=== PATIENT | male | born 1930 | race Caucasian/White ===

== ENCOUNTER 2016-10-24 05:56 | Day surgery (SDC) | payer MEDICARE ==
[~2016-10-24] VITALS: Ht 172.7 cm; Wt 78.6 kg
[2016-10-24] VITALS (12 sets, daily range): BP systolic 122–153; BP diastolic 75–107; PULSE 69–71; TEMP 97.4
[~2016-10-24 05:56] MED LIST: ASPI81CT10; ASPIRIN 81M81 MG/TA2 PO; BETAPACE 120MG120 MG PO; BETAPACE 80MG80 MG PO; CALCIUM200 MG PO; CEPHALEXIN500 M1 PO; DOXYCYCLINE 10100 MG PO; FISH OIL500 MG PO; GARLIC SUPPLEM300 MG PO; MUCUS RELIEF400 M1 PO; MULTAQ400 MG PO; NEW ENERGY1 CAP PO; NORCO 325 MG-51 TAB PO; NORCO 325 MG-7.1 TAB PO; NORVASC 5MG5 MG/TAB PO; OMEGA 31000 MG; PREVACID 30MG30 M1 PO; TOPROL XL25 MG PO; TYLENOL 500MG500 MG PO; ULTRAM 50MG TAB50 MG PO; VITAMIN D 400400 IU PO; XARELTO20 MG PO; ZOCOR; ZOCOR 20MG20 MG PO
[2016-10-24 06:50] LABS: HEMATOCRIT 40.9 % (42.0-52.0); HEMOGLOBIN 14.6 g/dl (13.5-18.0); MEAN CELL VOLUME 96 fl (80.0-100.0); MEAN CORPUSCULAR HEMOGLOBIN 34 pg (27.0-31.0); MEAN CORPUSCULAR HGB CONC 36 g/dl (33.0-37.0); MEAN PLATELET VOLUME 9.8 fl (7.4-10.4); PLATELET COUNT 145 K/mm3 (130-400); RED BLOOD COUNT 4.26 M/mm3 (4.20-5.60); REDCELL DISTRIBUTION WIDTH-CV 12.7 % (11.5-14.5); WHITE BLOOD COUNT 7.5 K/mm3 (4.8-10.8)
[2016-10-24 07:00] LABS: CALCIUM 9.1 mg/dL (8.4-10.2); CREATININE, serum 0.72 mg/dL (0.66-1.25); POTASSIUM 4.2 mmol/L (3.4-5.0)
[2016-10-24 07:20] LABS: INR 1.1 (0.8-3.0); PROTHROMBIN TIME 12.4 SECONDS (9.7-12.8)
[2016-10-24] MEDS ORDERED: ASPIRIN 32325 MG/TAB PO (07:29)
[2016-10-24] MEDS ORDERED: BETAPACE160 MG PO ×2 (09:54)
[2016-10-24] MEDS ORDERED: IMDUR 30MG30 MG/TAB PO (09:56)
[2016-12-03] MEDS ORDERED: LASIX 20MG TABL20 MG PO (14:38)
[2016-12-03] MEDS ORDERED: ALDACTONE50 MG PO (14:39)
[2016-12-03] MEDS ORDERED: PRINIVIL10 MG PO (14:39)
[2016-12-03] MEDS ORDERED: TOPROL XL 50MG50 MG PO (14:39)
[2016-12-03] MEDS ORDERED: TOPROL XL 25MG25 MG PO (14:45)
[2016-12-03] MEDS ORDERED: LIPITOR 10MG10 MG PO (14:46)
[2016-12-03] MEDS ORDERED: ALDACTONE 25MG25 M1 PO (14:46)
[2016-12-03] MEDS ORDERED: ZESTRIL2.5 MG PO (14:47)
[2016-12-03] MEDS ORDERED: LASIX 40MG TABL40 MG PO (14:48)
[2016-12-03] MEDS ORDERED: CORDARONE200 MG/TAB PO (14:48)
[2016-12-03] MEDS ORDERED: PREVACID 30MG30 M1 PO (14:49)
== END 2016-10-24 17:11 | disposition home or self-care (01) ==
LOC: COL.CAR 05:56
PROVIDERS: Internal Medicine Cardiovascular Disease
DX: I25.119 Atherosclerotic heart disease of native coronary artery with unspecified angina pectoris (principal); I50.1 Left ventricular failure, unspecified; I34.0 Nonrheumatic mitral (valve) insufficiency; E78.2 Mixed hyperlipidemia; I48.0 Paroxysmal atrial fibrillation; Z95.5 Presence of coronary angioplasty implant and graft; Z95.0 Presence of cardiac pacemaker
CPT/HCPCS: C1769; C1887; C1894; J1644; J2250; J3010; Q9967

== ENCOUNTER → 2016-11-07 | Outpatient (REF) ==
[~2016-11-07] MED LIST changes: +ALDACTONE 25MG25 M1 PO; +ALDACTONE50 MG PO; +ASPIRIN 32325 MG/TAB PO; +BETAPACE160 MG PO; +CORDARONE200 MG/TAB PO; +IMDUR 30MG30 MG/TAB PO; +LASIX 20MG TABL20 MG PO; +LASIX 40MG TABL40 MG PO; +LIPITOR 10MG10 MG PO; +PRINIVIL10 MG PO; +TOPROL XL 25MG25 MG PO; +TOPROL XL 50MG50 MG PO; +ZESTRIL2.5 MG PO
== END ==
LOC: ZCOL.LAB 14:05
DX: Z01.89 Encounter for other specified special examinations (principal)

== ENCOUNTER → 2016-12-03 | Outpatient (CLI) | payer MEDICARE | LOC: COL.RAD 13:51 | DX: R53.1 Weakness (principal) | CPT/HCPCS: A9585 ==

== ENCOUNTER 2017-02-07 12:08 | Outpatient (RCR) | payer MEDICARE | END 2017-03-04 | disposition home or self-care (01) | LOC: COL.CR | DX: Z48.812 Encounter for surgical aftercare following surgery on the circulatory system (principal); Z95.1 Presence of aortocoronary bypass graft; I25.10 Atherosclerotic heart disease of native coronary artery without angina pectoris ==

== ENCOUNTER → 2017-03-11 | Outpatient (RCR) | payer MEDICARE | END | disposition home or self-care (01) | LOC: WSST → MKS.ESL.OT 12-11 14:55 → WSST 12-12 12:30 | DX: I69.318 Other symptoms and signs involving cognitive functions following cerebral infarction (principal); I69.328 Other speech and language deficits following cerebral infarction | CPT/HCPCS: G8987-GO; G8988-GO; G8989-GO; G9168-GN; G9169-GN; G9171-GN; G9172-GN; G9173-GN ==

== ENCOUNTER 2017-03-20 10:15 | Outpatient (RCR) | payer MEDICARE | END 2017-03-25 10:20 | LOC: WSST 10:15 | DX: I69.318 Other symptoms and signs involving cognitive functions following cerebral infarction (principal) | CPT/HCPCS: G9169-GN; G9170-GN ==

== ENCOUNTER 2017-08-13 13:37 | Inpatient (IN) | payer MEDICARE ==
[~2017-08-13] VITALS: Ht 175.3 cm; Wt 79.5 kg
[2017-08-18 08:54] VITALS: BP 107/70; PULSE 69; TEMP 98.3
[2017-08-18 09:27] LABS: BASO # 0.1 (0.0-0.2); BASO % 0.6 % (0.0-2.0); EOS # 0.4 (0.0-0.7); EOS % 4.5 % (0-4.0); GRAN # 5.1 (1.4-6.5); GRAN % 63.3 % (42.2-75.2); HEMATOCRIT 40.3 % (42.0-52.0); HEMOGLOBIN 13.9 g/dl (13.5-18.0); LYMPH # 1.6 (1.2-3.4); LYMPH % 20.2 % (20.0-51.0); MEAN CELL VOLUME 96 fl (80.0-100.0); MEAN CORPUSCULAR HEMOGLOBIN 33 pg (27.0-31.0); MEAN CORPUSCULAR HGB CONC 35 g/dl (33.0-37.0); MEAN PLATELET VOLUME 9.6 fl (7.4-10.4); MONO # 0.9 (0.1-0.6); MONO % 10.8 % (1.7-9.3); PLATELET COUNT 171 K/mm3 (130-400); RED BLOOD COUNT 4.21 M/mm3 (4.20-5.60); REDCELL DISTRIBUTION WIDTH-CV 13.2 % (11.5-14.5)
[2017-08-18 09:33] LABS: INR 1.1 (0.8-3.0); PROTHROMBIN TIME 12.3 SECONDS (9.7-12.8)
[2017-08-18 09:37] LABS: ALBUMIN 3.8 gm/dL (3.5-5.0); BILIRUBIN,TOTAL 0.3 mg/dL (0.0-1.0); CALCIUM 9.1 mg/dL (8.4-10.2); CREATININE, serum 0.84 mg/dL (0.66-1.25); MAGNESIUM 1.8 mg/dL (1.6-2.3); TOTAL PROTEIN 6.9 gm/dL (6.4-8.2)
[2017-08-18] MEDS ORDERED: PRILOSEC10 MG PO (10:52)
[2017-08-18] MEDS ORDERED: SINGULAIR 110 MG/TAB PO (10:53)
[2017-08-18] MEDS ORDERED: MUCINEX 60600 MG/TA1 PO (10:53)
[2017-08-18] MEDS ORDERED: LASIX 20MG TABL20 MG PO (10:54)
[2017-08-18] MEDS ORDERED: CELEBREX 200MG200 MG PO (10:54)
[2017-08-18] MEDS ORDERED: THE MEDICINE S200 M2 PO (10:55)
[2017-08-18 11:34] VITALS: BP 146/76; PULSE 76; TEMP 97.6
[2017-08-18 16:02] VITALS: BP 129/79; PULSE 73; TEMP 98.1
[2017-08-18 20:31] VITALS: BP 143/91; PULSE 80; TEMP 98.6
[2017-08-18 23:56] VITALS: BP 122/71; PULSE 76; TEMP 97.7
[2017-08-19 04:16] VITALS: BP 135/78; PULSE 69; TEMP 97.9
[2017-08-19 06:56] LABS: BASO % 0.5 % (0.0-2.0); EOS # 0.4 (0.0-0.7); EOS % 4.6 % (0-4.0); GRAN # 4.4 (1.4-6.5); GRAN % 57.3 % (42.2-75.2); HEMATOCRIT 40.5 % (42.0-52.0); HEMOGLOBIN 13.8 g/dl (13.5-18.0); LYMPH # 1.9 (1.2-3.4); LYMPH % 24.9 % (20.0-51.0); MEAN CELL VOLUME 96 fl (80.0-100.0); MEAN CORPUSCULAR HEMOGLOBIN 33 pg (27.0-31.0); MEAN CORPUSCULAR HGB CONC 34 g/dl (33.0-37.0); MEAN PLATELET VOLUME 9.7 fl (7.4-10.4); MONO # 0.9 (0.1-0.6); MONO % 12.2 % (1.7-9.3); PLATELET COUNT 168 K/mm3 (130-400); RED BLOOD COUNT 4.24 M/mm3 (4.20-5.60)
[2017-08-19 06:57] LABS: INR 1.1 (0.8-3.0); PROTHROMBIN TIME 12.5 SECONDS (9.7-12.8)
[2017-08-19 07:11] LABS: CALCIUM 9.2 mg/dL (8.4-10.2); CREATININE, serum 0.78 mg/dL (0.66-1.25); MAGNESIUM 1.8 mg/dL (1.6-2.3); POTASSIUM 4.1 mmol/L (3.4-5.0)
[2017-08-19 08:10] VITALS: BP 115/78; PULSE 71; TEMP 98.6
[2017-08-19 11:50] VITALS: BP 130/80; PULSE 74; TEMP 98.3
[2017-08-19 15:59] VITALS: BP 121/74; PULSE 70; TEMP 98
[2017-08-19 20:17] VITALS: BP 138/88; PULSE 69; TEMP 97.4
[2017-08-20 00:21] VITALS: BP 134/79; PULSE 69; TEMP 97.5
[2017-08-20 04:35] VITALS: BP 120/63; PULSE 78; TEMP 97.3
[2017-08-20 06:32] LABS: BASO % 0.5 % (0.0-2.0); EOS # 0.4 (0.0-0.7); EOS % 4.8 % (0-4.0); GRAN # 4.2 (1.4-6.5); GRAN % 55.2 % (42.2-75.2); HEMATOCRIT 40.6 % (42.0-52.0); HEMOGLOBIN 14.3 g/dl (13.5-18.0); LYMPH % 26.6 % (20.0-51.0); MEAN CELL VOLUME 94 fl (80.0-100.0); MEAN CORPUSCULAR HEMOGLOBIN 33 pg (27.0-31.0); MEAN CORPUSCULAR HGB CONC 35 g/dl (33.0-37.0); MEAN PLATELET VOLUME 9.7 fl (7.4-10.4); MONO # 0.9 (0.1-0.6); MONO % 12.4 % (1.7-9.3); PLATELET COUNT 161 K/mm3 (130-400); RED BLOOD COUNT 4.34 M/mm3 (4.20-5.60); REDCELL DISTRIBUTION WIDTH-CV 12.6 % (11.5-14.5)
[2017-08-20 06:36] LABS: INR 1.1 (0.8-3.0); PROTHROMBIN TIME 12.5 SECONDS (9.7-12.8)
[2017-08-20 06:47] LABS: CALCIUM 9.1 mg/dL (8.4-10.2); CREATININE, serum 0.78 mg/dL (0.66-1.25); POTASSIUM 4.3 mmol/L (3.4-5.0)
[2017-08-20 08:09] VITALS: BP 116/73; PULSE 70; TEMP 98
[2017-08-20] MEDS ORDERED: BETAPACE 80MG80 MG PO (09:48)
== END 2017-08-20 12:00 | disposition home or self-care (01) | DRG 310 ==
LOC: MEDICAL 08-18 08:12
PROVIDERS: Internal Medicine Cardiovascular Disease
DX: I48.0 Paroxysmal atrial fibrillation (principal); E78.5 Hyperlipidemia, unspecified; I25.2 Old myocardial infarction; Z95.1 Presence of aortocoronary bypass graft; Z95.0 Presence of cardiac pacemaker

== ENCOUNTER 2017-10-07 11:12 | Emergency (ER) | payer MEDICARE ==
[~2017-10-07] VITALS: Ht 177.8 cm; Wt 79.5 kg
[~2017-10-07 11:12] MED LIST changes: +CELEBREX 200MG200 MG PO; +MUCINEX 60600 MG/TA1 PO; +PRILOSEC10 MG PO; +SINGULAIR 110 MG/TAB PO; +THE MEDICINE S200 M2 PO
[2017-10-07 11:41] VITALS: TEMP 97.8
[2017-10-07 13:21] LABS: BASO # 0.1 (0.0-0.2); BASO % 0.6 % (0.0-2.0); EOS # 0.3 (0.0-0.7); EOS % 3.5 % (0-4.0); GRAN % 60.2 % (42.2-75.2); HEMATOCRIT 42.1 % (42.0-52.0); HEMOGLOBIN 14.7 g/dl (13.5-18.0); LYMPH # 1.9 (1.2-3.4); LYMPH % 22.7 % (20.0-51.0); MEAN CELL VOLUME 95 fl (80.0-100.0); MEAN CORPUSCULAR HEMOGLOBIN 33 pg (27.0-31.0); MEAN CORPUSCULAR HGB CONC 35 g/dl (33.0-37.0); MEAN PLATELET VOLUME 9.8 fl (7.4-10.4); MONO % 12.4 % (1.7-9.3); PLATELET COUNT 168 K/mm3 (130-400); RED BLOOD COUNT 4.42 M/mm3 (4.20-5.60); REDCELL DISTRIBUTION WIDTH-CV 12.6 % (11.5-14.5)
[2017-10-07 13:23] LABS: INR 1.1 (0.8-3.0); PROTHROMBIN TIME 12.3 SECONDS (9.7-12.8)
[2017-10-07 13:29] LABS: ALANINE AMINOTRANSFERASE 29 U/L (21-72); ALBUMIN 3.8 gm/dL (3.5-5.0); ALKALINE PHOSPHATASE 63 U/L (50-136); ANION GAP 10 mmol/L (7-16); AST,SGOT 46 U/L (15-37); BILIRUBIN,TOTAL 0.5 mg/dL (0.0-1.0); BLOOD UREA NITROGEN 18 mg/dL (9-20); CALCIUM 9.1 mg/dL (8.4-10.2); CARBON DIOXIDE 27 mmol/L (22-30); CHLORIDE 101 mmol/L (98-107); CREATININE, serum 0.82 mg/dL (0.66-1.25); GLUCOSE 138 mg/dL (74-106); LIPASE 69 U/L (23-300); POTASSIUM 4.5 mmol/L (3.4-5.0); SODIUM 139 mmol/L (137-145)
[2017-10-07 13:42] LABS: TROPONIN-I < 0.012 ng/mL (0.000-0.034)
[2017-10-07 16:22] VITALS: BP 150/91; PULSE 73
== END 2017-10-07 16:24 | disposition home or self-care (01) ==
LOC: COL.ER 11:12
PROVIDERS: Emergency Medicine
DX: I20.8 Other forms of angina pectoris (principal); I10 Essential (primary) hypertension; E78.5 Hyperlipidemia, unspecified; Z98.890 Other specified postprocedural states; Z95.0 Presence of cardiac pacemaker

== ENCOUNTER → 2017-12-25 | Outpatient (CLI) | payer MEDICARE | LOC: COL.VAS 12:30 | DX: I70.213 Atherosclerosis of native arteries of extremities with intermittent claudication, bilateral legs (principal) ==

== ENCOUNTER 2019-01-02 07:24 | Emergency (ER) | payer MEDICARE ==
[~2019-01-02] VITALS: Ht 177.8 cm; Wt 77.7 kg
[2019-01-02 07:58] LABS: BASO # 0.1 (0.0-0.2); BASO % 0.6 % (0.0-2.0); EOS # 0.3 (0.0-0.7); EOS % 3.3 % (0-4.0); GRAN # 5.1 (1.4-6.5); GRAN % 62.2 % (42.2-75.2); HEMATOCRIT 43.1 % (42.0-52.0); HEMOGLOBIN 14.9 g/dl (13.5-18.0); LYMPH # 1.8 (1.2-3.4); LYMPH % 22.2 % (20.0-51.0); MEAN CELL VOLUME 99 fl (80.0-100.0); MEAN CORPUSCULAR HEMOGLOBIN 34 pg (27.0-31.0); MEAN CORPUSCULAR HGB CONC 35 g/dl (33.0-37.0); MEAN PLATELET VOLUME 9.2 fl (7.4-10.4); MONO # 0.9 (0.1-0.6); MONO % 10.8 % (1.7-9.3); PLATELET COUNT 159 K/mm3 (130-400); RED BLOOD COUNT 4.36 M/mm3 (4.20-5.60)
[2019-01-02 08:10] LABS: ALANINE AMINOTRANSFERASE 22 U/L (21-72); ALBUMIN 3.9 gm/dL (3.5-5.0); ALKALINE PHOSPHATASE 61 U/L (50-136); ANION GAP 9 mmol/L (7-16); AST,SGOT 31 U/L (15-37); BILIRUBIN,TOTAL 0.6 mg/dL (0.0-1.0); BLOOD UREA NITROGEN 27 mg/dL (9-20); C-REACTIVE PROTEIN 1.1 mg/dL (0.0-0.9); CARBON DIOXIDE 25 mmol/L (22-30); CHLORIDE 106 mmol/L (98-107); CREATININE, serum 0.81 (0.66-1.25); GLUCOSE 153 mg/dL (74-106); POTASSIUM 4.7 mmol/L (3.4-5.0); SODIUM 141 mmol/L (137-145); TOTAL PROTEIN 7.2 gm/dL (6.4-8.2)
[2019-01-02 08:19] LABS: ERYTHROCYTE SEDIMENTATION RATE 7 mm/hr (0-30); TROPONIN-I < 0.012 ng/mL (0.000-0.035)
[2019-01-02 11:02] LABS: PROTHROMBIN TIME 12.1 SECONDS (9.7-12.8)
[2019-01-02 11:30] VITALS: BP 141/72; PULSE 69
== END 2019-01-02 11:30 | disposition short-term general hospital (02) ==
LOC: COL.ER 07:24
PROVIDERS: Emergency Medicine
DX: L02.213 Cutaneous abscess of chest wall (principal); R07.89 Other chest pain; I48.91 Unspecified atrial fibrillation; Z95.0 Presence of cardiac pacemaker; Z98.890 Other specified postprocedural states; Z95.1 Presence of aortocoronary bypass graft; Z79.82 Long term (current) use of aspirin
CPT/HCPCS: J3370; J7050; Q9967

== ENCOUNTER → 2019-01-14 | Outpatient (CLI) | payer MEDICARE | LOC: ZCOL.LAB 13:22 | DX: T81.30XA Disruption of wound, unspecified, initial encounter (principal) ==

== ENCOUNTER 2019-09-01 06:34 | Emergency (ER) | payer MEDICARE ==
[~2019-09-01] VITALS: Ht 172.7 cm; Wt 80.9 kg
[2019-09-01 06:46] VITALS: TEMP 97.5
[2019-09-01 08:12] LABS: COLLECTION METHOD CLEAN CATCH
[2019-09-01 08:23] LABS: MUCOUS Present /lpf; PH 5 (5-8); SQUAMOUS EPITHELIAL None Seen /hpf; URINE APPEARANCE Clear; URINE BACTERIA Rare /hpf; URINE BILIRUBIN Negative (NEGATIVE); URINE BLOOD 1+ (NEGATIVE); URINE COLOR Yellow; URINE GLUCOSE 1+ (NEGATIVE); URINE KETONE Negative (NEGATIVE); URINE LEUKOCYTE ESTERASE Negative (NEGATIVE); URINE NITRATE Negative (NEGATIVE); URINE PROTEIN(semi-quant) Negative (NEGATIVE); URINE UROBILINOGEN Negative (NEGATIVE)
[2019-09-01] MEDS ORDERED: FLOMAX 0.40.4 MG/CAP PO (09:27)
[2019-09-01 09:40] VITALS: BP 125/70; PULSE 80
[2019-09-01] MEDS ORDERED: ASPIRIN E.C. 8181 MG PO (11:20)
[2019-09-01] MEDS ORDERED: PRIL40 PO (11:27)
[2019-09-01] MEDS ORDERED: COLACE 100100 MG/CAP PO (11:28)
[2019-09-01] MEDS ORDERED: MASON NATURAL500 MG PO (11:29)
[2019-09-01] MEDS ORDERED: CUBICIN 500MG500 MG IV (11:29)
[2019-09-01] MEDS ORDERED: TYLENOL 325MG325 MG PO (11:30)
[2019-09-01] MEDS ORDERED: NORCO 325 MG-51 TAB PO (11:31)
[2019-09-01] MEDS ORDERED: VITAMIN B COMPL1 T16 PO (11:31)
[2019-09-01] MEDS ORDERED: ULTRAM 50MG TAB50 MG PO (11:32)
[2019-09-01] MEDS ORDERED: COZAAR 25MG25 MG/TAB PO (11:32)
[2019-09-01] MEDS ORDERED: SENOKOT S 50 MG1 TAB PO (11:33)
[2019-09-01] MEDS ORDERED: NITROSTAT0.4 MG/TAB SL (11:34)
== END 2019-09-01 09:42 | disposition home or self-care (01) ==
LOC: COL.ER 06:34
PROVIDERS: Emergency Medicine
DX: R33.9 Retention of urine, unspecified (principal); Z79.82 Long term (current) use of aspirin

== ENCOUNTER 2020-03-16 10:09 | Inpatient (IN) | payer MEDICARE ==
[~2020-03-16] VITALS: Ht 172.7 cm; Wt 79.6 kg
[~2020-03-16 10:09] MED LIST changes: +ASPIRIN E.C. 8181 MG PO; +BACTRIM DS 8001 TAB PO; +CHROMIUM PICOLI1 TA8 PO; +COLACE 100100 MG/CAP PO; +COZAAR 25MG25 MG/TAB PO; +CUBICIN 500MG500 MG IV; +FERROUSAL325 MG PO; +FLOMAX 0.40.4 MG/CAP PO; +FOLIC ACID 40400 MCG PO; +IMDUR 60MG60 MG/TAB PO; +LEVOXYL0.05 MG PO; +MASON NATURAL2000 IU PO; +MASON NATURAL500 MG PO; +NITROSTAT0.4 MG/TAB SL; +PRIL40 PO; +SENOKOT S 50 MG1 TAB PO; +STOOL SOFTENER100 M2 PO; +TYLENOL 325MG325 MG PO; +TYLENOL 8 HR PO; +VITAMIN B COMPL1 T16 PO; +VITAMIN C500 MG PO; +antibiotic PO
[2020-03-16] MEDS ORDERED: NOVOLOG 100U100 U/M1 SQ (10:27)
[2020-03-16] MEDS ORDERED: IMDUR 60MG60 MG/TAB PO (10:36)
--- NOTE | 2020-03-16 17:04 | NUR ---
Call placed to Engineering about temperture in patient room. Patient reporting that temp is too cold. Awaiting a return call.
[2020-03-16 17:13] VITALS: BP 133/68; PULSE 69; TEMP 98.2
[2020-03-16 18:00] VITALS: BP 133/68; PULSE 69; TEMP 98.6
[2020-03-16 18:16] VITALS: BP 133/68; PULSE 69; TEMP 98.6
--- NOTE | 2020-03-16 19:19 | NUR ---
Patient arrived to [facility] this afternoon and had his initial assessment. Patient was very talkative. He was aclamated to the IPR unit. Patient is forgetful at times. PT asked to have ST orders placed for cognition issues. He is independent with his meals. He was a CGA with all transfers using gait belt and walker. He was able to wipe himself and pull pants up and down independently with Touch assistance only. His bottom is a little red. Patient needed Mod assist to get legs in the bed. He is independent with rolling side to side and sit to lying and lying to sitting. Patient wanted brief removed at so that he could sleep better. He is A&Ox4 and had a pain level of 0-4/10 this shift.
--- NOTE | 2020-03-17 03:54 | NUR ---
PT VOIDING Q 1-2HRS TONIGHT. UA 03/16 WNL'S. PT SLEEPING WELL OTHERWISE.
--- NOTE | 2020-03-17 05:50 | NUR ---
BED ALARM SOUNDING. PT AMB TO BR PER SELF W/ WALKER. ENC PT TO CALL FOR ASSIST. RELATED HAD A BAD NIGHT. PT FEELS CONSTIPATED. WANTED ONLY PRUNE JUICE. HAVING LT HIP PAIN. SEE MAR FOR PAIN MED GIVEN. PT RELATED HAD URINATED ON FEET. CLEANED FEET AND PLACED NEW SOCKS ON. PT APPRECIATIVE FOR ASSIST. CALL LIGHT IN REACH. BED ALARM SET.
[2020-03-17 05:53] VITALS: BP 150/82; PULSE 71; TEMP 98.5
--- NOTE | 2020-03-17 08:45 | NUR ---
Patient sitting up in the recliner eatting breakfast. A&Ox3. VSS. Denies pain and discomfort. Nursing staff assisted patient prior to the bathroom. Gait belt and walker used, patient steady on feet and tolerated well. Patient independent with breakfast. No further needs expressed from the patient. Call light within reach. Chair alarm on
--- NOTE | 2020-03-17 15:31 | NUR ---
[employer] C[employer] Ground Operations Supervisor met with patient, patient's Kate (ph#[phone]) and patient's daughter, Jazmyne (ph#[phone]) as patient is new to [facility]. Patient's daughter is here from [place]. Patient [place], [place] with his and sees Dr. Arnold for primary care. 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 Patient has been using a four wheeled walker and feels that this is why he has been falling at home. Patient does not have a standard front wheeled walker. Patient is normally independent with ADLS. Patient does not have Advance Directives in EMR. SW will continue to follow.
[2020-03-17 17:40] VITALS: BP 155/74; PULSE 73; TEMP 98
[2020-03-18 05:39] VITALS: BP 157/76; PULSE 70; TEMP 97.6
--- NOTE | 2020-03-18 05:52 | NUR ---
TRAMADOL AT H.S. FOR LLE DISCOMFORT. NO N/V. MINIMAL ASSIST WITH ADLs.
--- NOTE | 2020-03-18 13:40 | NUR ---
Family just arrived and visiting with patient. Patient denies pain at this time. Takes pills whole with water. Currently sitting in recliner, call light in reach and chair alarm set. Will continue to monitor.
--- NOTE | 2020-03-18 14:57 | NUR ---
Patient resting in recliner, call light in reach and bed alarm set. Denies pain at this time. Visiting with daughter on the phone at this time. Will continue to monitor.
--- NOTE | 2020-03-18 14:58 | NUR ---
Patient attended group therapy this morning. He is independent with eating. He is currently resting in recliner with and daughter by his side. Patient given prn pain meds for leg pain and has been effective. Dressing to left leg is CDI.
[2020-03-18 16:51] VITALS: BP 124/75; PULSE 79; TEMP 97.5
--- NOTE | 2020-03-18 19:34 | NUR ---
PATIENT AMBULATING FROM BATHROOM TO BED DURING CHANGE OF SHIFT REPORT FROM DAY SHIFT NURSE. BED ALARM ON WHEN BACK IN BED.
--- NOTE | 2020-03-18 23:05 | NUR ---
PATIENT WITH STEADY GAIT WHEN WALKING TO AND FROM BATHROOM WITH ASSIST X1/GB&WW IN PLACE. FALL PRECAUTIONS IN PLACE AND PATIENT VERBALIZED UNDERSTANDING OF GB & WW USE WHEN OUT OF BED AND ACCOMPANIED BY STAFF X1. BED ALARM ON WHEN IN BED.
--- NOTE | 2020-03-18 23:47 | NUR ---
PATIENT REPORTS FEELING RESTLESS AT THIS TIME, SITTING AT SIDE OF BED, UNABLE TO SLEEP, REMINDED PATIENT OF FALL PRECAUTIONS, NEEDING TO HAVE ASST W/GB&WW WHEN OUT OF BED. DENIES ANY NEEDS OR CONCERNS.
[2020-03-19 05:55] VITALS: BP 147/89; PULSE 69; TEMP 97.7
--- NOTE | 2020-03-19 06:50 | NUR ---
CHANGE OF SHIFT REPORT GIVEN TO DAY SHIFT NURSERENATA. CHAIR ALARM ON WHILE PATIENT SLEEPING IN CHAIR DURING REPORT.
--- NOTE | 2020-03-19 07:06 | NUR ---
PATIENT SLEEPING IN CHAIR AT BEDSIDE SHIFT REPORT. CHAIR ALARM IN PLACE, CALL LIGHT WITHIN REACH. PATIENT REQUESTS A BATH AND SHAVE TODAY.
[2020-03-19 09:25] LABS: BASO % 0.5 % (0.0-2.0); EOS # 0.3 (0.0-0.7); EOS % 3.5 % (0-4.0); GRAN # 5.8 (1.4-6.5); GRAN % 69.7 % (42.2-75.2); HEMOGLOBIN 10.8 g/dl (13.5-18.0); LYMPH # 1.3 (1.2-3.4); LYMPH % 15.1 % (20.0-51.0); MEAN CELL VOLUME 97 fl (80.0-100.0); MEAN CORPUSCULAR HEMOGLOBIN 32 pg (27.0-31.0); MEAN CORPUSCULAR HGB CONC 33 g/dl (33.0-37.0); MONO # 0.8 (0.1-0.6); PLATELET COUNT 243 K/mm3 (130-400); RED BLOOD COUNT 3.39 M/mm3 (4.20-5.60); REDCELL DISTRIBUTION WIDTH-CV 15.9 % (11.5-14.5)
[2020-03-19 09:26] LABS: HEMATOCRIT 32.8 % (42.0-52.0)
--- NOTE | 2020-03-19 13:49 | NUR ---
PATIENT C/O ABDOMINAL PAIN, DENIES FEELING OF NAUSEA, DOES FEEL CONSTIPATED. TUMS WAS GIVEN THIS AM. PATIENT DENIED MORE PAIN UNTIL THE AFTERNOON. CONTINUING TO MONITOR.
--- NOTE | 2020-03-19 16:00 | NUR ---
PATIENT AMBULATED 300 FEET TODAY IN TWO DIFFERNT SESSIONS WITH THIS NURSE. GAIT BELT AND WALKER UTILIZED. PATIENT PUTS A LOT OF WEIGHT ON WRIST/HANDS LEANING ON THE WALKER FOR SUPPORT.
--- NOTE | 2020-03-19 17:11 | NUR ---
PATIENT C/O ABDOMINAL PAIN THIS AM WHICH SUBSIDED AND RETURNED IN THE EARLY AFTERNOON. AFTER A LATE LUNCH THE PATIENT AMBULATED THE HALLWAYS WITH THIS NURSE. AT THIS TIME THE PATIENT RECEIVED A PRN TRAMADOL AND UTILIZED ICE THERAPY ON THE HIP. THE PATIENT AMBULATED THE HALLWAY AGAIN LATER. IN THE EVENING THE PATIENT REPORTED GAGGING ON PHLEGM BUT NO MORE ABDOMINLA PAIN.
[2020-03-19 18:09] VITALS: BP 125/66; PULSE 70; TEMP 98.2
--- NOTE | 2020-03-19 19:05 | NUR ---
RECEIVED CHANGE OF SHIFT REPORT FROM DAY SHIFT NURSE, WITH PATIENT SITTING UP IN CHAIR. DENIES ANY NEEDS OR CONCERNS AT TIME OF REPORT.
--- NOTE | 2020-03-19 20:00 | NUR ---
PATIENT WITH SOME DECREASED ROM/STRENGTH TO LLE D/T HIP SURGERY. DENIES NUMBNESS/TINGLING TO LLE AT THIS TIME. DENIES CHEST PAIN, SHORTNESS OF BREATH AT THIS TIME. CHAIR ALARM ON WHEN SITTING UP IN CHAIR CURRENTLY.
--- NOTE | 2020-03-19 20:17 | NUR ---
PATIENT STATED HE WALKED IN HALLS WITH DAY SHIFT NURSES A TOTAL OF 2 TIMES, ABOUT SAME DISTANCE HE WALKED CURRENTLY WITH THIS NURSE. UP IN CHAIR, CHAIR ALARM ON.
[2020-03-20 04:44] VITALS: BP 149/69; PULSE 85; TEMP 97.9
--- NOTE | 2020-03-20 07:05 | NUR ---
PATIENT DROPPED ON THE FLOOR EARLY AM SCHEDULED MEDS OF PROTONIX, IMDUR AND THYROID MEDS, AFTER PATIENT PLACED PILLS FROM PILL CUP INTO HIS HAND. REMOVED SAME THREE MEDS FROM MED STATION. PATIENT UP IN CHAIR WITH CHAIR ALARM ON.
--- NOTE | 2020-03-20 07:26 | NUR ---
CHANGE OF SHIFT REPORT GIVEN TO DAY SHIFT NURSERENATA. UP IN CHAIR WITH CHAIR ALARM ON.
--- NOTE | 2020-03-20 08:27 | NUR ---
PATIENT RESTING IN CHAIR AT BEDSIDE SHIFT REPORT. PATIENT'S CLOTHES BROUGHT UP FROM DRYER. CHAIR ALARM ON AND CALL LIGHT WITHIN REACH.
--- NOTE | 2020-03-20 10:26 | NUR ---
Follow-up visit; Greyson says he's doing better every day and thanked for looking in on him.
--- NOTE | 2020-03-20 12:38 | NUR ---
PATIENT SHOWERED WITH OT, THE AIRSTRIP NEEDED CHANGED AND HAD MOD AMOUNT OF SANGUINEOUS DRAINAGE NOTED. A SINGLE SUTURE CAME OUT ON POSTERIOR END OF INCISION AND INCISION DOES NOT APPROXIMATE AT THAT SITE.
[2020-03-20 15:49] VITALS: BP 119/73; PULSE 70; TEMP 98.3
--- NOTE | 2020-03-20 16:38 | NUR ---
PRN SUPPOSITORY GIVEN TODAY FOR CONSTIPATION. PRN MIRALAX GIVEN WITH PRUNE JUICE YESTERDAY AND PATIENT RECEIVES SCHEDULED COLACE. PATIENT HAD SMALL HARD STOOL TODAY AND C/O NEEDING TO GO MORE.
--- NOTE | 2020-03-20 16:45 | NUR ---
MARGARETTE met with the patient and his daughter, Jazmyne, to introduce oneself and to follow up. The patient reports that he is okay. MARGARETTE discussed having a patient/family meeting this Friday. Haleigh contacted the patient's , Kate, to see if this would work. Kate reports that she has appointments all day on Friday and that would work better for her. A patient/family meeting was scheduled for at 1315. MARGARETTE to inform IPR Director.
--- NOTE | 2020-03-20 17:39 | NUR ---
PATIENT HAD SMALL FORMED SOFT BLACK/TARRY BM AFTER SUPPOSITORY THIS MARY. FEELS LIKE HE STILL HAS MORE. GIVING PATIENT A BREAK AND WILL TRY OTHER INTERVENTIONS IF NECESSARY. PATIENT'S PAIN MANAGED WELL DURING THERAPY TODAY. PATIENT RESTING IN CHAIR WITH ALARM IN PLACE AND ON AND CALL LIGHT WITHIN REACH.
--- NOTE | 2020-03-20 18:30 | NUR ---
PATIENT WITH DECREASED STRENGTH TO LLE D/T RECENT HIP SURGERY AND PAIN. DENIES CHEST PAIN, SHORTNESS OF BREATHE, NUMBNESS/TINGLING TO EXTREMITIES. CHAIR ALARM ON WHEN UP IN CHAIR, BED ALARM ON WHEN IN BED.
[2020-03-21 05:54] VITALS: BP 136/64; PULSE 70; TEMP 97.8
[2020-03-21 07:10] VITALS: BP 144/74; PULSE 71
--- NOTE | 2020-03-21 07:26 | NUR ---
CHANGE OF SHIFT REPORT GIVEN TO DAY SHIFT NURSEGURDEEP. BED ALARM ON.
--- NOTE | 2020-03-21 11:48 | NUR ---
Patient attended group therapy and is now resting in recliner, call light in reach and chair alarm set. Patient reported that he had a large bowel movement following Group Therapy. Patient had received some miralax this morning and had some warm water with prunes with breakfast. Patient reporting that he is feeling more comfortable now.
--- NOTE | 2020-03-21 13:05 | NUR ---
MARGARETTE contacted the patient's daughter, Jazmyne, to review how only one visitor will be allowed for the patient/family meeting or how the team can contact both her and her mother for a conference call. Jazmyne reports that she would like to speak to her mother and the patient about this, before deciding on how to do the meeting. She reports she will contact MARGARETTE tomorrow morning. MARGARETTE to continue to follow.
--- NOTE | 2020-03-21 13:25 | NUR ---
Admission QIM scores were reviewed by the team. Code of 2 chosen for lower body dressing was determined by team discussion to be the most usual performance for this patient during the assessment period.--Marine Logan, PD
[2020-03-21 17:49] VITALS: BP 141/66; PULSE 71; TEMP 98
--- NOTE | 2020-03-21 18:30 | NUR ---
CHANGE OF SHIFT REPORT RECEIVED FROM DAY SHIFT NURSE. PATIENT UP IN CHAIR DURING REPORT. CHAIR ALARM ON.
--- NOTE | 2020-03-21 19:03 | NUR ---
Patient was seen by Dr. Hoffman today, see new orders for Melatonin to help him with sleeping. Patient's and daughter stopped by to visit with him earlier today.
[2020-03-22 05:05] VITALS: BP 147/92; PULSE 81; TEMP 97.5
--- NOTE | 2020-03-22 07:06 | NUR ---
CHANGE OF SHIFT REPORT GIVEN TO DAY SHIFT NURSEGURDEEP. PATIENT UP IN CHAIR, CHAIR ALARM ON.
--- NOTE | 2020-03-22 09:38 | NUR ---
Patient currently working with therapy. Tolerated diet well this AM. Denies questions this morning.
--- NOTE | 2020-03-22 16:25 | NUR ---
MARGARETTE met with the patient to present and review the IPR Team Conference Note. MARGARETTE reviewed the patient's progress and the team's recommendation for d/c this Friday, 03/24, with home health PT/OT vs outpatient PT. The patient is agreeable to the plan. He states that he would prefer outpatient PT, if he is able to drive. MARGARETTE then contacted and reviewed the above information with the patient's daughter (Jazmyne) and Kate). Jazmyne and Kate were agreeable to the plan. Jazmyne plans to bring Kate up to the hospital tomorrow for the family meeting and asks that we call her, so she be apart of the meeting. SW to continue to follow.
[2020-03-22 17:18] VITALS: BP 122/72; PULSE 70; TEMP 97.7
--- NOTE | 2020-03-22 20:08 | NUR ---
Received report from NGUYỄN Townsend. Pt is currently sitting up in his chair. Pt has his call light wtihin reach and his bed is in lowest position.
--- NOTE | 2020-03-22 21:00 | NUR ---
Pt ambulated around the surgical nurse station and back to [facility] and to his room. Pt tolerated the walk very well. Pt had no complaints of pain. Pt is currently back in his chair and has his call light within reach. He did request that he had something for pain whenever he got his night time medications.
[2020-03-23 05:32] VITALS: BP 118/73; PULSE 73; TEMP 98
--- NOTE | 2020-03-23 06:37 | NUR ---
Pt awake and sitting up in bed. Pt request hot chocolate this morning and pt was given sugar free hot chocolate this morning. Pt stated that he slept better last night. Pt has his call light within reach and his bed is in lowest position.
--- NOTE | 2020-03-23 10:45 | NUR ---
PATIENT TOOK SHOWER WITH OT. AIRSTRIP DRESSING REMOVED. SCANT OLD BLOODY DRAINAGE PRESENT ON DRESSING TO PROXIMAL AND DISTAL ENDS OF THE INCISION. EDGES WELL APPROXIMATED. STERI-STRIPS IN PLACE TO PORTIONS OF INCISION. REDNESS AND EDEMA TO LEFT HIP SURROUNDING INCISION SITE. NEW AIRSTRIP DRESSING APPLIED OVER LEFT HIP INCISION. PATIENT TOLERATED WELL.
[2020-03-23] MEDS ORDERED: FERRO-TIME325 MG PO (15:40)
[2020-03-23] MEDS ORDERED: ULTRAM 50MG TAB50 MG PO (15:41)
--- NOTE | 2020-03-23 15:42 | NUR ---
MARGARETTE attended a family meeting with patient, his , and daughter (Jazmyne). Also present was IPR Director, PT, OT, and ST. IPR Director started by explaining the purpose of the meeting. PT/OT/ST discussed the patient's progress and their recommendation for a d/c tomorrow with home health PT/OT vs outpatient PT. The patient's daughter reports that the patient was cleared to drive and that she can also accompany the patient to the appointments. The patient reports that he would prefer outpatient PT and that he has already spoken to [facility] and has an outpatient PT appointment. MARGARETTE contacted [facility] at [facility] and confirmed the patient has an outpatient PT appointment scheduled on 03/28 at 1020. MARGARETTE to inform the patient's RN. The team answered all of patient and families questions. VIPIN delivered the patient's FWW to his room. MARGARETTE presented and read the IM form outloud to the patient. The patient verbalized understanding and gave MARGARETTE approval to sign the form on his behalf. MARGARETTE provided him with a copy. MARGARETTE to continue to follow.
[2020-03-23 17:44] VITALS: BP 117/68; PULSE 74; TEMP 98.3
--- NOTE | 2020-03-23 19:11 | NUR ---
PATIENT INDEPENDENT IN THE ROOM THROUGHOUT MY SHIFT. PATIENT GIVEN PAIN MEDICATION FOR LEFT HIP PAIN NEEDED DURING THE DAY. WILL REPORT OFF TO ONCOMING NURSE.
--- NOTE | 2020-03-23 20:08 | NUR ---
Pt ambulated around the surgical nurse station and back to his room. Pt tolerated well. Pt did stated that he was having some pain so pain was given his pain medication with his night time medications. Pt ate a few crackers so that he wouldn't take his medication on an empty stomach. Pt lung sounds were clear and heart sound was normal S1 and S2 sounds. Pt has his call light within reach. He is independent in his room has no other concerns at this time. Pt was given fresh ice water and sugar free hot chocolate as requested.
--- NOTE | 2020-03-24 05:12 | NUR ---
Pt is currently sleeping in his bed. Pt has been up a couple of times to go to the restroom during the night. Pt also walked to his door earlier just to let me know that he was awake. I did check on him a few times and he was reading his bible on his phone. Pt has his call light within reach and his bed is in lowest position.
[2020-03-24 05:47] VITALS: BP 126/83; PULSE 74; TEMP 97.7
--- NOTE | 2020-03-24 06:56 | NUR ---
Reported off to NGUYỄN Martinez. Pt is currently sitting up in his chair. He has his call light within reach and has no concerns at this time.
--- NOTE | 2020-03-24 09:07 | NUR ---
PATIENT RESTING IN CHAIR AT BEDSIDE SHIFT REPORT. CALL LIGHT WITHIN REACH, PATIENT DENIES PAIN AT THIS TIME.
--- NOTE | 2020-03-24 13:21 | NUR ---
Patient healthy summary, discharge summary, and home meds printed and reviewed with patient and Kate. Stressed importance of follow up appointments. Reviewed medications. provided printed prescription for Tramadol. Call prescriptions for Levothyroxine to [facility]. Belongings gathered by Environmental Engineering Assistant and family including watch and cellphone. Pt transported via wc by barber shop operator and nurse and seatbelted for ride home. Patient and family denied questions.
== END 2020-03-24 13:21 | disposition home or self-care (01) | DRG 950 ==
PROVIDERS: ADMIT Internal Medicine
DX: S70.02XD Contusion of left hip, subsequent encounter (principal); R53.81 Other malaise; E11.65 Type 2 diabetes mellitus with hyperglycemia; I25.10 Atherosclerotic heart disease of native coronary artery without angina pectoris; I48.91 Unspecified atrial fibrillation; K21.9 Gastro-esophageal reflux disease without esophagitis; N40.0 Benign prostatic hyperplasia without lower urinary tract symptoms; E03.9 Hypothyroidism, unspecified; E78.5 Hyperlipidemia, unspecified; I49.5 Sick sinus syndrome; D64.9 Anemia, unspecified; R30.0 Dysuria; W19.XXXD Unspecified fall, subsequent encounter; Z79.82 Long term (current) use of aspirin; Z79.891 Long term (current) use of opiate analgesic; Z79.1 Long term (current) use of non-steroidal anti-inflammatories (NSAID); Z95.0 Presence of cardiac pacemaker; Z95.1 Presence of aortocoronary bypass graft; Z95.5 Presence of coronary angioplasty implant and graft; Z96.642 Presence of left artificial hip joint; Z86.73 Personal history of transient ischemic attack (TIA), and cerebral infarction without residual deficits; Z88.2 Allergy status to sulfonamides; Z88.1 Allergy status to other antibiotic agents; Z91.81 History of falling
CPT/HCPCS: 99222-AI; 99232-AI; 99239; J1815

== ENCOUNTER → 2020-05-01 | Outpatient (CLI) | payer MEDICARE ==
[~2020-05-01] MED LIST changes: +FERRO-TIME325 MG PO; +NOVOLOG 100U100 U/M1 SQ
== END ==
LOC: COL.RAD 13:25
DX: R22.1 Localized swelling, mass and lump, neck (principal)
CPT/HCPCS: Q9967

== ENCOUNTER → 2020-05-16 | Outpatient (CLI) | payer MEDICARE ==
[~2020-05-16] VITALS: Ht 172.7 cm; Wt 81.0 kg
[2020-05-16 09:56] LABS: BASO % 0.4 % (0.0-2.0); EOS # 0.3 (0.0-0.7); EOS % 3.3 % (0-4.0); GRAN # 5.3 (1.4-6.5); GRAN % 66.3 % (42.2-75.2); HEMATOCRIT 41.8 % (42.0-52.0); HEMOGLOBIN 14.3 g/dl (13.5-18.0); LYMPH # 1.3 (1.2-3.4); MEAN CELL VOLUME 94 fl (80.0-100.0); MEAN CORPUSCULAR HEMOGLOBIN 32 pg (27.0-31.0); MEAN CORPUSCULAR HGB CONC 34 g/dl (33.0-37.0); MEAN PLATELET VOLUME 9.2 fl (7.4-10.4); MONO % 12.7 % (1.7-9.3); PLATELET COUNT 152 K/mm3 (130-400); RED BLOOD COUNT 4.45 M/mm3 (4.20-5.60); REDCELL DISTRIBUTION WIDTH-CV 12.8 % (11.5-14.5)
[2020-05-16 09:59] VITALS: BP 158/95; PULSE 76
[2020-05-16 10:30] VITALS: BP 184/97; PULSE 73
--- NOTE | 2020-05-16 10:30 | NUR ---
pt to Ultrasound via w/c, Dr Bernard in room to start procedure
[2020-05-16 10:40] VITALS: BP 185/97; PULSE 70
[2020-05-16 10:50] VITALS: BP 185/99; PULSE 70
--- NOTE | 2020-05-16 10:53 | NUR ---
3-4 specimans obtained from site, specimans put in 3cc of Sterile NS as directed by Lab for container. bandaid over site, pt has no c/o
[2020-05-16 10:55] VITALS: BP 158/91; PULSE 70
== END ==
LOC: COL.RAD 09:25
PROVIDERS: Family Medicine
DX: R22.31 Localized swelling, mass and lump, right upper limb (principal); M86.1 Other acute osteomyelitis; M00.9 Pyogenic arthritis, unspecified

== ENCOUNTER → 2020-05-30 | Outpatient (CLI) | payer MEDICARE | LOC: ZCOL.LAB 16:17 | DX: R22.1 Localized swelling, mass and lump, neck (principal) ==

== ENCOUNTER → 2020-07-06 | Outpatient (CLI) | payer MEDICARE ==
[~2020-07-06] VITALS: Ht 172.7 cm; Wt 84.0 kg
[~2020-07-06] MED LIST changes: +CLEOCIN HCL300 MG PO; +ISORDIL 10MG10 MG PO
[2020-07-06 10:58] VITALS: BP 157/109; PULSE 71
[2020-07-06 13:00] VITALS: BP 170/109; PULSE 81
[2020-07-06 13:05] VITALS: BP 170/109; PULSE 82
[2020-07-06 13:15] VITALS: BP 170/100; PULSE 71
[2020-07-06 13:30] VITALS: BP 166/96; PULSE 67
[2020-07-06 14:00] VITALS: BP 167/89; PULSE 69
== END ==
LOC: COL.RAD 10:34
DX: M51.36 Other intervertebral disc degeneration, lumbar region (principal); M48.061 Spinal stenosis, lumbar region without neurogenic claudication

== ENCOUNTER → 2020-07-24 | Outpatient (RCR) | payer MEDICARE ==
[2020-07-06 10:53] VITALS: BP 181/105; PULSE 74; TEMP 98.2
[2020-07-06 11:58] LABS: BASO % 0.5 % (0.0-2.0); EOS # 0.3 (0.0-0.7); EOS % 3.9 % (0-4.0); GRAN # 4.9 (1.4-6.5); GRAN % 65.6 % (42.2-75.2); HEMATOCRIT 38.2 % (42.0-52.0); LYMPH # 1.4 (1.2-3.4); MEAN CELL VOLUME 95 fl (80.0-100.0); MEAN CORPUSCULAR HEMOGLOBIN 32 pg (27.0-31.0); MEAN CORPUSCULAR HGB CONC 34 g/dl (33.0-37.0); MEAN PLATELET VOLUME 9.3 fl (7.4-10.4); MONO # 0.8 (0.1-0.6); MONO % 10.6 % (1.7-9.3); PLATELET COUNT 137 K/mm3 (130-400); RED BLOOD COUNT 4.01 M/mm3 (4.20-5.60); REDCELL DISTRIBUTION WIDTH-CV 13.7 % (11.5-14.5)
[2020-07-06 12:10] LABS: ALBUMIN 3.8 gm/dL (3.5-5.0); BILIRUBIN,TOTAL 0.9 mg/dL (0.0-1.0); C-REACTIVE PROTEIN 0.8 mg/dL (0.0-0.9); CALCIUM 9.1 mg/dL (8.4-10.2); CREATININE, serum 0.63 (0.66-1.25); POTASSIUM 4.2 mmol/L (3.4-5.0); TOTAL PROTEIN 6.8 gm/dL (6.4-8.2)
[2020-07-06 12:30] LABS: ERYTHROCYTE SEDIMENTATION RATE 11 mm/hr (0-30)
[2020-07-07 09:07] VITALS: BP 147/70; PULSE 73; TEMP 98.2
[2020-07-08 09:44] VITALS: BP 146/81; PULSE 84; TEMP 98.2
[2020-07-09 09:00] VITALS: BP 146/87; PULSE 72; TEMP 98.2
[2020-07-10 09:30] VITALS: BP 121/69; PULSE 82; TEMP 98.4
[2020-07-10 09:56] LABS: ALBUMIN 3.8 gm/dL (3.5-5.0); BILIRUBIN,TOTAL 1.2 mg/dL (0.0-1.0); C-REACTIVE PROTEIN 1.3 mg/dL (0.0-0.9); CALCIUM 9.2 mg/dL (8.4-10.2); CREATININE, serum 0.72 (0.66-1.25); POTASSIUM 4.2 mmol/L (3.4-5.0); TOTAL PROTEIN 6.9 gm/dL (6.4-8.2)
[2020-07-10 09:57] LABS: BASO % 0.6 % (0.0-2.0); EOS # 0.2 (0.0-0.7); EOS % 2.9 % (0-4.0); GRAN # 4.8 (1.4-6.5); GRAN % 66.1 % (42.2-75.2); HEMATOCRIT 40.4 % (42.0-52.0); HEMOGLOBIN 13.7 g/dl (13.5-18.0); LYMPH # 1.3 (1.2-3.4); LYMPH % 17.9 % (20.0-51.0); MEAN CELL VOLUME 96 fl (80.0-100.0); MEAN CORPUSCULAR HEMOGLOBIN 32 pg (27.0-31.0); MEAN CORPUSCULAR HGB CONC 34 g/dl (33.0-37.0); MEAN PLATELET VOLUME 9.8 fl (7.4-10.4); MONO # 0.9 (0.1-0.6); MONO % 11.9 % (1.7-9.3); PLATELET COUNT 148 K/mm3 (130-400); RED BLOOD COUNT 4.23 M/mm3 (4.20-5.60); REDCELL DISTRIBUTION WIDTH-CV 13.8 % (11.5-14.5)
[2020-07-10 10:49] LABS: ERYTHROCYTE SEDIMENTATION RATE 11 mm/hr (0-30)
[2020-07-11 09:12] VITALS: BP 123/71; PULSE 71; TEMP 98.5
[2020-07-12 09:02] VITALS: BP 125/68; PULSE 71; TEMP 98.3
[2020-07-13 09:15] VITALS: BP 138/86; PULSE 85; TEMP 98.2
[2020-07-15 08:13] VITALS: BP 145/88; PULSE 69; TEMP 98
[2020-07-17 09:10] VITALS: BP 150/79; PULSE 70; TEMP 98.3
[2020-07-17 09:43] LABS: BASO % 0.6 % (0.0-2.0); EOS # 0.2 (0.0-0.7); EOS % 2.6 % (0-4.0); GRAN # 5.2 (1.4-6.5); GRAN % 72.2 % (42.2-75.2); HEMATOCRIT 40.2 % (42.0-52.0); HEMOGLOBIN 13.5 g/dl (13.5-18.0); LYMPH # 1.2 (1.2-3.4); LYMPH % 16.1 % (20.0-51.0); MEAN CELL VOLUME 96 fl (80.0-100.0); MEAN CORPUSCULAR HEMOGLOBIN 32 pg (27.0-31.0); MEAN CORPUSCULAR HGB CONC 34 g/dl (33.0-37.0); MEAN PLATELET VOLUME 9.4 fl (7.4-10.4); MONO # 0.6 (0.1-0.6); MONO % 8.1 % (1.7-9.3); PLATELET COUNT 131 K/mm3 (130-400); RED BLOOD COUNT 4.19 M/mm3 (4.20-5.60); REDCELL DISTRIBUTION WIDTH-CV 14.3 % (11.5-14.5)
[2020-07-17 09:53] LABS: ALBUMIN 3.8 gm/dL (3.5-5.0); BILIRUBIN,TOTAL 1.1 mg/dL (0.0-1.0); C-REACTIVE PROTEIN 1.3 mg/dL (0.0-0.9); CALCIUM 9.1 mg/dL (8.4-10.2); CREATININE, serum 0.74 (0.66-1.25); POTASSIUM 4.2 mmol/L (3.4-5.0)
[2020-07-17 10:12] LABS: ERYTHROCYTE SEDIMENTATION RATE 11 mm/hr (0-30)
[2020-07-18 09:00] VITALS: BP 134/81; PULSE 76; TEMP 98.3
[2020-07-19 09:18] VITALS: BP 123/76; PULSE 71; TEMP 98.3
[2020-07-20 09:13] VITALS: BP 126/77; PULSE 72; TEMP 98.4
[2020-07-22 08:12] VITALS: BP 151/83; PULSE 74; TEMP 98.5
[2020-07-23 08:20] VITALS: BP 155/78; PULSE 72; TEMP 97.8
[~2020-07-24] VITALS: Ht 172.7 cm; Wt 84.1 kg
[~2020-07-24] MED LIST changes: +FLONASEALLERGY NS; -ISORDIL 10MG10 MG PO; +PACERONE400 MG PO
[2020-07-24 09:30] LABS: BASO % 0.6 % (0.0-2.0); EOS # 0.3 (0.0-0.7); EOS % 4.3 % (0-4.0); GRAN # 4.6 (1.4-6.5); GRAN % 68.7 % (42.2-75.2); HEMOGLOBIN 13.4 g/dl (13.5-18.0); LYMPH # 1.1 (1.2-3.4); LYMPH % 16.4 % (20.0-51.0); MEAN CELL VOLUME 95 fl (80.0-100.0); MEAN CORPUSCULAR HEMOGLOBIN 33 pg (27.0-31.0); MEAN CORPUSCULAR HGB CONC 34 g/dl (33.0-37.0); MEAN PLATELET VOLUME 9.4 fl (7.4-10.4); MONO # 0.6 (0.1-0.6); MONO % 9.4 % (1.7-9.3); PLATELET COUNT 135 K/mm3 (130-400); RED BLOOD COUNT 4.09 M/mm3 (4.20-5.60); REDCELL DISTRIBUTION WIDTH-CV 14.4 % (11.5-14.5)
[2020-07-24 09:35] VITALS: BP 148/87; PULSE 68; TEMP 98
[2020-07-24 09:52] LABS: BILIRUBIN,TOTAL 1.1 mg/dL (0.0-1.0); CREATININE, serum 0.73 (0.66-1.25); TOTAL PROTEIN 7.1 gm/dL (6.4-8.2)
[2020-07-24 11:45] LABS: ERYTHROCYTE SEDIMENTATION RATE 4 mm/hr (0-30)
== END | disposition home or self-care (01) ==
LOC: EUO
PROVIDERS: Internal Medicine Infectious Disease
DX: M86.9 Osteomyelitis, unspecified (principal); Z79.899 Other long term (current) drug therapy
CPT/HCPCS: C1751; J0878; J2997; Q9965

== ENCOUNTER 2020-08-20 07:44 | Outpatient (RCR) | payer MEDICARE ==
[2020-07-25 09:12] VITALS: BP 157/60; PULSE 80; TEMP 98.5
[2020-07-27 09:15] VITALS: BP 150/71; PULSE 70; TEMP 98.4
[2020-07-28 09:00] VITALS: BP 124/60; PULSE 72; TEMP 97.6
[2020-07-29 09:11] VITALS: BP 156/95; PULSE 77; TEMP 97.5
[2020-07-30 09:00] VITALS: BP 121/80; PULSE 74; TEMP 98
[2020-07-31 09:20] VITALS: BP 190/92; PULSE 71; TEMP 98.1
[2020-07-31 09:36] LABS: BASO # 0.1 (0.0-0.2); BASO % 0.6 % (0.0-2.0); EOS # 0.4 (0.0-0.7); EOS % 5.4 % (0-4.0); GRAN # 5.3 (1.4-6.5); GRAN % 68.4 % (42.2-75.2); LYMPH # 1.3 (1.2-3.4); LYMPH % 16.4 % (20.0-51.0); MEAN CELL VOLUME 95 fl (80.0-100.0); MEAN CORPUSCULAR HEMOGLOBIN 32 pg (27.0-31.0); MEAN CORPUSCULAR HGB CONC 34 g/dl (33.0-37.0); MEAN PLATELET VOLUME 9.1 fl (7.4-10.4); MONO # 0.6 (0.1-0.6); MONO % 8.2 % (1.7-9.3); PLATELET COUNT 149 K/mm3 (130-400); RED BLOOD COUNT 4.63 M/mm3 (4.20-5.60); REDCELL DISTRIBUTION WIDTH-CV 14.4 % (11.5-14.5)
[2020-07-31 09:48] LABS: ALBUMIN 3.9 gm/dL (3.5-5.0); C-REACTIVE PROTEIN 1.7 mg/dL (0.0-0.9); CREATININE, serum 0.78 (0.66-1.25); POTASSIUM 4.2 mmol/L (3.4-5.0); TOTAL PROTEIN 7.2 gm/dL (6.4-8.2)
[2020-07-31 09:55] LABS: ERYTHROCYTE SEDIMENTATION RATE 4 mm/hr (0-30)
[2020-08-01 09:38] VITALS: BP 118/75; PULSE 81; TEMP 97.8
[2020-08-02 10:51] VITALS: BP 153/84; PULSE 70; TEMP 97.7
[2020-08-03 09:01] VITALS: BP 140/65; PULSE 72; TEMP 97.6
[2020-08-04 09:30] VITALS: BP 126/79; PULSE 71; TEMP 98.5
[2020-08-05 08:23] VITALS: BP 124/77; PULSE 72; TEMP 98
[2020-08-06 09:09] VITALS: BP 165/89; PULSE 73; TEMP 97.9
[2020-08-07 09:03] VITALS: BP 137/77; BP 153/99; PULSE 85; TEMP 97.8
[2020-08-07 09:27] LABS: BASO % 0.5 % (0.0-2.0); EOS # 0.3 (0.0-0.7); EOS % 3.4 % (0-4.0); GRAN # 5.1 (1.4-6.5); GRAN % 69.8 % (42.2-75.2); HEMATOCRIT 39.6 % (42.0-52.0); HEMOGLOBIN 13.5 g/dl (13.5-18.0); LYMPH # 1.1 (1.2-3.4); LYMPH % 14.3 % (20.0-51.0); MEAN CELL VOLUME 96 fl (80.0-100.0); MEAN CORPUSCULAR HEMOGLOBIN 33 pg (27.0-31.0); MEAN CORPUSCULAR HGB CONC 34 g/dl (33.0-37.0); MEAN PLATELET VOLUME 9.2 fl (7.4-10.4); MONO # 0.8 (0.1-0.6); MONO % 11.3 % (1.7-9.3); PLATELET COUNT 131 K/mm3 (130-400); RED BLOOD COUNT 4.12 M/mm3 (4.20-5.60); REDCELL DISTRIBUTION WIDTH-CV 14.4 % (11.5-14.5)
[2020-08-07 09:38] LABS: ALBUMIN 3.9 gm/dL (3.5-5.0); BILIRUBIN,TOTAL 0.7 mg/dL (0.0-1.0); C-REACTIVE PROTEIN 1.9 mg/dL (0.0-0.9); CALCIUM 9.1 mg/dL (8.4-10.2); CREATININE, serum 0.74 (0.66-1.25); POTASSIUM 3.9 mmol/L (3.4-5.0); TOTAL PROTEIN 7.1 gm/dL (6.4-8.2)
[2020-08-07 10:20] LABS: ERYTHROCYTE SEDIMENTATION RATE 13 mm/hr (0-30)
[2020-08-08 09:13] VITALS: BP 118/66; PULSE 71; TEMP 96.3
[2020-08-09 09:09] VITALS: BP 133/95; PULSE 80; TEMP 98.2
[2020-08-10 09:20] VITALS: BP 139/94; PULSE 70; TEMP 98.6
[2020-08-11 09:06] VITALS: BP 166/94; PULSE 71; TEMP 98.7
[2020-08-13 09:17] VITALS: BP 148/84; PULSE 70; TEMP 97.8
[2020-08-14 09:22] LABS: BASO % 0.5 % (0.0-2.0); EOS # 0.3 (0.0-0.7); EOS % 4.4 % (0-4.0); GRAN # 4.1 (1.4-6.5); GRAN % 66.5 % (42.2-75.2); HEMATOCRIT 39.3 % (42.0-52.0); HEMOGLOBIN 13.3 g/dl (13.5-18.0); LYMPH # 1.1 (1.2-3.4); LYMPH % 17.6 % (20.0-51.0); MEAN CELL VOLUME 96 fl (80.0-100.0); MEAN CORPUSCULAR HEMOGLOBIN 33 pg (27.0-31.0); MEAN CORPUSCULAR HGB CONC 34 g/dl (33.0-37.0); MEAN PLATELET VOLUME 9.2 fl (7.4-10.4); MONO # 0.6 (0.1-0.6); MONO % 10.3 % (1.7-9.3); PLATELET COUNT 146 K/mm3 (130-400); RED BLOOD COUNT 4.09 M/mm3 (4.20-5.60); REDCELL DISTRIBUTION WIDTH-CV 13.8 % (11.5-14.5)
[2020-08-14 09:24] VITALS: BP 129/77; PULSE 81; TEMP 97.8
[2020-08-14 09:30] LABS: ALBUMIN 3.9 gm/dL (3.5-5.0); BILIRUBIN,TOTAL 0.8 mg/dL (0.0-1.0); C-REACTIVE PROTEIN 1.7 mg/dL (0.0-0.9); CREATININE, serum 0.8 (0.66-1.25); POTASSIUM 4.2 mmol/L (3.4-5.0); TOTAL PROTEIN 6.9 gm/dL (6.4-8.2)
[2020-08-14 09:58] LABS: ERYTHROCYTE SEDIMENTATION RATE 13 mm/hr (0-30)
[2020-08-15 09:10] VITALS: BP 164/93; PULSE 76; TEMP 97.7
[2020-08-16 09:00] VITALS: BP 136/77; PULSE 72; TEMP 98
[2020-08-17 09:12] VITALS: BP 159/82; PULSE 69; TEMP 98.2
[2020-08-18 09:21] VITALS: BP 160/85; PULSE 70; TEMP 97.8
[~2020-08-20] VITALS: Ht 172.7 cm; Wt 81.9 kg
[~2020-08-20 07:44] MED LIST changes: +PACERONE200 MG PO; -PACERONE400 MG PO
[2020-08-21 09:09] VITALS: BP 153/80; PULSE 72; TEMP 98.1
[2020-08-21 09:46] LABS: BASO % 0.6 % (0.0-2.0); EOS # 0.3 (0.0-0.7); GRAN # 4.4 (1.4-6.5); GRAN % 67.5 % (42.2-75.2); HEMATOCRIT 42.3 % (42.0-52.0); HEMOGLOBIN 14.1 g/dl (13.5-18.0); LYMPH # 1.1 (1.2-3.4); LYMPH % 16.4 % (20.0-51.0); MEAN CELL VOLUME 95 fl (80.0-100.0); MEAN CORPUSCULAR HEMOGLOBIN 32 pg (27.0-31.0); MEAN CORPUSCULAR HGB CONC 33 g/dl (33.0-37.0); MEAN PLATELET VOLUME 9.1 fl (7.4-10.4); MONO # 0.6 (0.1-0.6); MONO % 9.3 % (1.7-9.3); PLATELET COUNT 168 K/mm3 (130-400); RED BLOOD COUNT 4.45 M/mm3 (4.20-5.60); REDCELL DISTRIBUTION WIDTH-CV 13.7 % (11.5-14.5)
[2020-08-21 10:04] LABS: ALBUMIN 3.9 gm/dL (3.5-5.0); BILIRUBIN,TOTAL 0.8 mg/dL (0.0-1.0); CALCIUM 9.2 mg/dL (8.4-10.2); CREATININE, serum 0.73 (0.66-1.25); POTASSIUM 4.1 mmol/L (3.4-5.0); TOTAL PROTEIN 7.2 gm/dL (6.4-8.2)
[2020-08-21 10:56] LABS: ERYTHROCYTE SEDIMENTATION RATE 11 mm/hr (0-30)
[2020-08-22 09:16] VITALS: BP 129/76; PULSE 71; TEMP 98.5
[2020-08-23 09:40] VITALS: BP 123/83; PULSE 71; TEMP 97.9
[2020-08-24 09:15] VITALS: BP 123/72; PULSE 69; TEMP 98.7
[2020-08-25 09:19] VITALS: BP 149/74; PULSE 76; TEMP 98.1
[2020-08-26 08:29] VITALS: BP 141/78; PULSE 94; TEMP 97.7
--- NOTE | 2020-08-26 09:00 | NUR ---
PT IN FOR IV MEDICATION. PICC WNL WITH GOOD BLOOD RETURN. AFTER MEDICATION GIVEN PT ESCORTED TO PRIVATE VEHICLE VIA WHEELCHAIR.
[2020-08-27 08:53] VITALS: BP 126/77; PULSE 69; TEMP 97.8
[2020-08-28 09:20] VITALS: BP 183/90; PULSE 84; TEMP 97.7
[2020-08-28 09:25] LABS: BILIRUBIN,TOTAL 0.6 mg/dL (0.0-1.0); C-REACTIVE PROTEIN 1.8 mg/dL (0.0-0.9); CALCIUM 9.2 mg/dL (8.4-10.2); CREATININE, serum 0.74 (0.66-1.25); POTASSIUM 4.2 mmol/L (3.4-5.0); TOTAL PROTEIN 7.2 gm/dL (6.4-8.2)
[2020-08-28 09:33] LABS: BASO # 0.1 (0.0-0.2); BASO % 0.7 % (0.0-2.0); EOS # 0.3 (0.0-0.7); EOS % 3.4 % (0-4.0); GRAN # 5.3 (1.4-6.5); GRAN % 72.1 % (42.2-75.2); HEMATOCRIT 40.2 % (42.0-52.0); HEMOGLOBIN 13.7 g/dl (13.5-18.0); LYMPH # 0.9 (1.2-3.4); LYMPH % 12.7 % (20.0-51.0); MEAN CELL VOLUME 95 fl (80.0-100.0); MEAN CORPUSCULAR HEMOGLOBIN 32 pg (27.0-31.0); MEAN CORPUSCULAR HGB CONC 34 g/dl (33.0-37.0); MEAN PLATELET VOLUME 9.1 fl (7.4-10.4); MONO # 0.7 (0.1-0.6); MONO % 10.1 % (1.7-9.3); PLATELET COUNT 142 K/mm3 (130-400); RED BLOOD COUNT 4.24 M/mm3 (4.20-5.60); REDCELL DISTRIBUTION WIDTH-CV 13.6 % (11.5-14.5)
[2020-08-28 10:08] LABS: ERYTHROCYTE SEDIMENTATION RATE 10 mm/hr (0-30)
[2020-08-29 09:23] VITALS: BP 148/75; PULSE 69; TEMP 98
[2020-08-30 10:23] VITALS: BP 160/78; PULSE 68; TEMP 98.2
[2020-08-31 11:50] VITALS: BP 135/81; PULSE 73; TEMP 98.6
[2020-09-07 08:49] VITALS: BP 152/88; PULSE 73; TEMP 98.2
[2020-09-07 08:54] LABS: BASO % 0.6 % (0.0-2.0); EOS # 0.4 (0.0-0.7); EOS % 5.3 % (0-4.0); GRAN # 4.2 (1.4-6.5); GRAN % 63.2 % (42.2-75.2); HEMATOCRIT 42.1 % (42.0-52.0); HEMOGLOBIN 14.1 g/dl (13.5-18.0); LYMPH # 1.1 (1.2-3.4); LYMPH % 16.8 % (20.0-51.0); MEAN CELL VOLUME 96 fl (80.0-100.0); MEAN CORPUSCULAR HEMOGLOBIN 32 pg (27.0-31.0); MEAN CORPUSCULAR HGB CONC 34 g/dl (33.0-37.0); MONO # 0.9 (0.1-0.6); MONO % 13.3 % (1.7-9.3); PLATELET COUNT 166 K/mm3 (130-400); REDCELL DISTRIBUTION WIDTH-CV 13.5 % (11.5-14.5)
[2020-09-07 09:13] LABS: ERYTHROCYTE SEDIMENTATION RATE 8 mm/hr (0-30)
[2020-09-07 09:38] LABS: BILIRUBIN,TOTAL 0.6 mg/dL (0.0-1.0); C-REACTIVE PROTEIN 1.8 mg/dL (0.0-0.9); CALCIUM 9.3 mg/dL (8.4-10.2); CREATININE, serum 0.77 (0.66-1.25); POTASSIUM 4.4 mmol/L (3.4-5.0); TOTAL PROTEIN 7.2 gm/dL (6.4-8.2)
--- NOTE | 2020-09-07 11:50 | NUR ---
Pt assisted out by wheelchair to entrance, then accompanied to car as he ambulates with walker. Dressing to DAVID remains clean, dry and intact. Pt expresses understanding of PICC removal DC instructions.
== END 2020-09-07 12:45 | disposition home or self-care (01) ==
LOC: EUO 07:44
PROVIDERS: Internal Medicine Infectious Disease
DX: M86.9 Osteomyelitis, unspecified (principal)
CPT/HCPCS: J0878

== ENCOUNTER 2020-08-21 10:02 | Outpatient (RCR) | payer MEDICARE ==
[2020-10-25] MEDS ORDERED: ROXICODONE 55 MG/TAB PO (09:58)
[2020-10-25] MEDS ORDERED: CUBICIN 500MG500 MG IV (09:58)
[2020-10-25] MEDS ORDERED: NITROSTAT0.4 MG/TAB SL (10:03)
[2020-10-25] MEDS ORDERED: FLOMAX 0.40.4 MG/CAP PO (10:04)
[2020-11-09] MEDS ORDERED: NORCO 325 MG-51 TAB PO (09:30)
== END 2020-11-19 | disposition home or self-care (01) ==
LOC: WSST
DX: R13.12 Dysphagia, oropharyngeal phase (principal)

== ENCOUNTER → 2020-08-31 | Outpatient (CLI) | payer MEDICARE ==
[~2020-08-31] MED LIST changes: -PACERONE200 MG PO; +PACERONE400 MG PO
== END ==
LOC: COL.RAD 08-29 14:30
DX: R13.12 Dysphagia, oropharyngeal phase (principal)

== ENCOUNTER → 2020-10-13 | Outpatient (CLI) | payer MEDICARE ==
[~2020-10-13] MED LIST changes: +PACERONE200 MG PO; -PACERONE400 MG PO; +ROXICODONE 55 MG/TAB PO
== END ==
LOC: ZCOL.LAB 12:37
DX: Z01.812 Encounter for preprocedural laboratory examination (principal); Z20.822 Contact with and (suspected) exposure to COVID-19

== ENCOUNTER 2020-10-25 08:00 | Outpatient (RCR) | payer MEDICARE ==
[2020-09-21 11:57] VITALS: BP 165/89; PULSE 85; TEMP 98.2
[2020-09-22 09:10] VITALS: BP 147/77; PULSE 70; TEMP 98.2
[2020-09-23 08:10] VITALS: BP 151/79; PULSE 69; TEMP 98.4
[2020-09-24 09:50] VITALS: BP 130/79; PULSE 77; TEMP 97.9
[2020-09-25 09:38] VITALS: BP 104/56; PULSE 70; TEMP 98.1
[2020-09-25 09:49] LABS: BASO % 0.6 % (0.0-2.0); EOS # 0.3 (0.0-0.7); EOS % 3.6 % (0-4.0); GRAN # 5.2 (1.4-6.5); GRAN % 71.2 % (42.2-75.2); HEMATOCRIT 41.1 % (42.0-52.0); HEMOGLOBIN 13.9 g/dl (13.5-18.0); LYMPH # 1.1 (1.2-3.4); LYMPH % 14.8 % (20.0-51.0); MEAN CELL VOLUME 96 fl (80.0-100.0); MEAN CORPUSCULAR HEMOGLOBIN 32 pg (27.0-31.0); MEAN CORPUSCULAR HGB CONC 34 g/dl (33.0-37.0); MEAN PLATELET VOLUME 9.7 fl (7.4-10.4); MONO # 0.7 (0.1-0.6); MONO % 9.1 % (1.7-9.3); PLATELET COUNT 126 K/mm3 (130-400); RED BLOOD COUNT 4.29 M/mm3 (4.20-5.60); REDCELL DISTRIBUTION WIDTH-CV 13.4 % (11.5-14.5)
[2020-09-25 09:57] LABS: ALBUMIN 3.7 gm/dL (3.5-5.0); BILIRUBIN,TOTAL 0.8 mg/dL (0.0-1.0); C-REACTIVE PROTEIN 1.4 mg/dL (0.0-0.9); CREATININE, serum 0.76 (0.66-1.25); POTASSIUM 4.2 mmol/L (3.4-5.0); TOTAL PROTEIN 6.7 gm/dL (6.4-8.2)
[2020-09-25 10:21] LABS: ERYTHROCYTE SEDIMENTATION RATE 6 mm/hr (0-30)
[2020-09-26 09:20] VITALS: BP 139/81; PULSE 70; TEMP 98.1
[2020-09-27 09:38] VITALS: BP 144/87; PULSE 74; TEMP 98.2
[2020-09-28 09:10] VITALS: BP 166/90; PULSE 71; TEMP 97.9
[2020-09-29 09:09] VITALS: BP 150/92; PULSE 73; TEMP 98.2
[2020-09-30 09:44] VITALS: BP 150/86; PULSE 75; TEMP 98.6
[2020-10-01 09:40] VITALS: BP 112/70; PULSE 74; TEMP 97.8
[2020-10-02 09:07] VITALS: BP 114/68; PULSE 75; TEMP 97.8
[2020-10-02 09:27] LABS: BASO % 0.5 % (0.0-2.0); EOS # 0.2 (0.0-0.7); EOS % 4.1 % (0-4.0); GRAN # 3.9 (1.4-6.5); GRAN % 67.2 % (42.2-75.2); HEMATOCRIT 41.9 % (42.0-52.0); HEMOGLOBIN 14.1 g/dl (13.5-18.0); LYMPH % 17.9 % (20.0-51.0); MEAN CELL VOLUME 96 fl (80.0-100.0); MEAN CORPUSCULAR HEMOGLOBIN 32 pg (27.0-31.0); MEAN CORPUSCULAR HGB CONC 34 g/dl (33.0-37.0); MEAN PLATELET VOLUME 9.2 fl (7.4-10.4); MONO # 0.6 (0.1-0.6); PLATELET COUNT 150 K/mm3 (130-400); RED BLOOD COUNT 4.38 M/mm3 (4.20-5.60); REDCELL DISTRIBUTION WIDTH-CV 13.4 % (11.5-14.5)
[2020-10-02 09:41] LABS: ALBUMIN 3.7 gm/dL (3.5-5.0); C-REACTIVE PROTEIN 1.7 mg/dL (0.0-0.9); CREATININE, serum 0.8 (0.66-1.25); POTASSIUM 4.4 mmol/L (3.4-5.0); TOTAL PROTEIN 6.9 gm/dL (6.4-8.2)
[2020-10-03 09:08] VITALS: BP 135/85; PULSE 82; TEMP 97.8
[2020-10-04 14:52] VITALS: BP 106/69; PULSE 74; TEMP 98.5
[2020-10-05 09:44] LABS: COLLECTION METHOD CLEAN CATCH
[2020-10-05 09:47] VITALS: BP 151/81; PULSE 70; TEMP 98
[2020-10-05 09:54] LABS: MUCOUS Present /lpf; PH 5 (5-8); SQUAMOUS EPITHELIAL None Seen /hpf; URINE APPEARANCE Hazy; URINE BACTERIA None Seen /hpf; URINE BILIRUBIN Negative (NEGATIVE); URINE BLOOD Negative (NEGATIVE); URINE COLOR Yellow; URINE GLUCOSE Negative (NEGATIVE); URINE KETONE Negative (NEGATIVE); URINE LEUKOCYTE ESTERASE Negative (NEGATIVE); URINE NITRATE Negative (NEGATIVE); URINE PROTEIN(semi-quant) Negative (NEGATIVE); URINE RBC 0-2 /hpf; URINE UROBILINOGEN Negative (NEGATIVE)
[2020-10-06 09:15] VITALS: BP 166/97; PULSE 87; TEMP 98.4
[2020-10-07 08:02] VITALS: BP 146/83; PULSE 75; TEMP 98
[2020-10-08 08:45] VITALS: BP 159/95; PULSE 76; TEMP 98.8
[2020-10-09 09:06] VITALS: BP 145/81; PULSE 72; TEMP 98.5
[2020-10-09 09:18] LABS: BASO # 0.1 (0.0-0.2); BASO % 0.8 % (0.0-2.0); EOS # 0.3 (0.0-0.7); EOS % 4.4 % (0-4.0); GRAN # 4.2 (1.4-6.5); GRAN % 62.9 % (42.2-75.2); HEMATOCRIT 42.6 % (42.0-52.0); HEMOGLOBIN 14.3 g/dl (13.5-18.0); LYMPH # 1.3 (1.2-3.4); LYMPH % 19.8 % (20.0-51.0); MEAN CELL VOLUME 95 fl (80.0-100.0); MEAN CORPUSCULAR HEMOGLOBIN 32 pg (27.0-31.0); MEAN CORPUSCULAR HGB CONC 34 g/dl (33.0-37.0); MONO # 0.8 (0.1-0.6); MONO % 11.6 % (1.7-9.3); PLATELET COUNT 172 K/mm3 (130-400); RED BLOOD COUNT 4.47 M/mm3 (4.20-5.60); REDCELL DISTRIBUTION WIDTH-CV 13.5 % (11.5-14.5)
[2020-10-09 09:32] LABS: ALBUMIN 3.8 gm/dL (3.5-5.0); BILIRUBIN,TOTAL 0.6 mg/dL (0.0-1.0); C-REACTIVE PROTEIN 1.4 mg/dL (0.0-0.9); CREATININE, serum 0.8 (0.66-1.25); POTASSIUM 4.4 mmol/L (3.4-5.0); TOTAL PROTEIN 7.2 gm/dL (6.4-8.2)
--- NOTE | 2020-10-10 09:30 | NUR ---
Here for cares. to return next Friday at 0900. reports understanding of instuctions.
[2020-10-10 09:44] VITALS: BP 112/64; PULSE 70; TEMP 98.4
[2020-10-16 08:40] VITALS: BP 112/64; PULSE 71; TEMP 98.2
[2020-10-21 08:47] VITALS: BP 119/71; PULSE 69; TEMP 98
[2020-10-22 09:27] VITALS: BP 120/80; PULSE 79; TEMP 97.9
[2020-10-23 09:12] VITALS: BP 136/84; PULSE 73; TEMP 98.3
[2020-10-23 09:34] LABS: BASO # 0.1 (0.0-0.2); BASO % 0.8 % (0.0-2.0); EOS # 0.3 (0.0-0.7); EOS % 4.5 % (0-4.0); GRAN # 4.4 (1.4-6.5); GRAN % 66.1 % (42.2-75.2); HEMOGLOBIN 13.4 g/dl (13.5-18.0); LYMPH # 1.2 (1.2-3.4); LYMPH % 18.2 % (20.0-51.0); MEAN CELL VOLUME 96 fl (80.0-100.0); MEAN CORPUSCULAR HEMOGLOBIN 32 pg (27.0-31.0); MEAN CORPUSCULAR HGB CONC 34 g/dl (33.0-37.0); MEAN PLATELET VOLUME 9.7 fl (7.4-10.4); MONO # 0.6 (0.1-0.6); MONO % 9.5 % (1.7-9.3); PLATELET COUNT 140 K/mm3 (130-400); RED BLOOD COUNT 4.17 M/mm3 (4.20-5.60)
[2020-10-23 09:51] LABS: ALBUMIN 3.5 gm/dL (3.5-5.0); BILIRUBIN,TOTAL 0.8 mg/dL (0.0-1.0); C-REACTIVE PROTEIN 2.2 mg/dL (0.0-0.9); CALCIUM 8.7 mg/dL (8.4-10.2); CREATININE, serum 0.75 (0.66-1.25); POTASSIUM 4.4 mmol/L (3.4-5.0); TOTAL PROTEIN 6.7 gm/dL (6.4-8.2)
[2020-10-24 09:11] VITALS: BP 108/69; PULSE 78; TEMP 97.7
[~2020-10-25] VITALS: Ht 172.7 cm; Wt 85.2 kg
[~2020-10-25 08:00] MED LIST changes: -ROXICODONE 55 MG/TAB PO
[2020-10-25 09:20] VITALS: BP 135/75; PULSE 85; TEMP 97.6
--- NOTE | 2020-10-25 09:21 | NUR ---
No blood return at PICC.Per Donnell Schmitz to use today and recheck tomorrow
[2020-10-25] MEDS ORDERED: ROXICODONE 55 MG/TAB PO (09:58)
[2020-10-25] MEDS ORDERED: CUBICIN 500MG500 MG IV (09:58)
[2020-10-25] MEDS ORDERED: NITROSTAT0.4 MG/TAB SL (10:03)
[2020-10-25] MEDS ORDERED: FLOMAX 0.40.4 MG/CAP PO (10:04)
== END 2020-10-25 10:09 | disposition home or self-care (01) ==
LOC: EUO 08:00
PROVIDERS: Family Medicine; Internal Medicine Infectious Disease
DX: Z45.2 Encounter for adjustment and management of vascular access device (principal); B99.9 Unspecified infectious disease; M86.9 Osteomyelitis, unspecified; M62.81 Muscle weakness (generalized); Z95.0 Presence of cardiac pacemaker; Z79.899 Other long term (current) drug therapy
CPT/HCPCS: C1751; J0878; J1335

== ENCOUNTER 2020-10-28 09:23 | Emergency (ER) | payer MEDICARE ==
[~2020-10-28] VITALS: Ht 172.7 cm; Wt 81.8 kg
[~2020-10-28 09:23] MED LIST changes: +ROXICODONE 55 MG/TAB PO
[2020-10-28 09:25] VITALS: TEMP 98.5
[2020-10-28 10:05] LABS: BASO # 0.1 (0.0-0.2); BASO % 0.8 % (0.0-2.0); EOS # 0.3 (0.0-0.7); EOS % 4.8 % (0-4.0); GRAN # 4.3 (1.4-6.5); GRAN % 69.2 % (42.2-75.2); HEMOGLOBIN 12.3 g/dl (13.5-18.0); LYMPH # 0.8 (1.2-3.4); LYMPH % 13.5 % (20.0-51.0); MEAN CELL VOLUME 95 fl (80.0-100.0); MEAN CORPUSCULAR HEMOGLOBIN 32 pg (27.0-31.0); MEAN CORPUSCULAR HGB CONC 33 g/dl (33.0-37.0); MEAN PLATELET VOLUME 9.1 fl (7.4-10.4); MONO # 0.7 (0.1-0.6); MONO % 11.1 % (1.7-9.3); PLATELET COUNT 130 K/mm3 (130-400); RED BLOOD COUNT 3.86 M/mm3 (4.20-5.60); REDCELL DISTRIBUTION WIDTH-CV 13.9 % (11.5-14.5)
[2020-10-28 10:16] LABS: ALBUMIN 3.3 gm/dL (3.5-5.0); BILIRUBIN,TOTAL 0.5 mg/dL (0.0-1.0); C-REACTIVE PROTEIN 1.6 mg/dL (0.0-0.9); CALCIUM 8.6 mg/dL (8.4-10.2); CREATININE, serum 0.72 (0.66-1.25); TOTAL PROTEIN 6.2 gm/dL (6.4-8.2)
[2020-10-28 10:39] LABS: HEMATOCRIT 36.8 % (42.0-52.0)
[2020-10-28 12:00] VITALS: BP 165/91; PULSE 69
== END 2020-10-28 12:00 | disposition home or self-care (01) ==
LOC: COL.ER 09:23
PROVIDERS: Family Medicine
DX: L76.34 Postprocedural seroma of skin and subcutaneous tissue following other procedure (principal); J44.9 Chronic obstructive pulmonary disease, unspecified; I25.10 Atherosclerotic heart disease of native coronary artery without angina pectoris; E78.5 Hyperlipidemia, unspecified; I48.91 Unspecified atrial fibrillation; K21.9 Gastro-esophageal reflux disease without esophagitis; N40.0 Benign prostatic hyperplasia without lower urinary tract symptoms; Z86.73 Personal history of transient ischemic attack (TIA), and cerebral infarction without residual deficits; Z85.828 Personal history of other malignant neoplasm of skin; Z88.2 Allergy status to sulfonamides; Z88.1 Allergy status to other antibiotic agents; Z79.82 Long term (current) use of aspirin
CPT/HCPCS: Q9967

== ENCOUNTER 2020-11-16 09:00 | Outpatient (RCR) | payer MEDICARE ==
[2020-10-26 09:12] VITALS: BP 99/63; PULSE 87; TEMP 98.3
--- NOTE | 2020-10-26 09:38 | NUR ---
No blood return today via PICC.Reported to RICARDO Tpaia.Pt has apt with her following this apt.Requested orders for cath flow after checking PICC placement tomorrow .Ainsley aware,per Ainsley madrid to use for IV abx.Will reassess tomorrow.
--- NOTE | 2020-10-27 09:55 | NUR ---
Call recieved from Jarod Schmitz post xray.OK to use PICC line and give cathflow.
[2020-10-27 10:25] VITALS: BP 117/59; PULSE 71; TEMP 97.8
--- NOTE | 2020-10-27 10:55 | NUR ---
Blood return observed via picc after 30 minutes instill time of cathflow.20ml of blood aspired from PICC,flushed with NS.
[2020-10-28 08:54] VITALS: BP 148/85; PULSE 71; TEMP 98.3
[2020-10-29 08:54] VITALS: BP 134/68; PULSE 71; TEMP 97.5
[2020-10-30 09:09] VITALS: BP 130/46; PULSE 72; TEMP 98.1
[2020-10-30 09:21] LABS: BASO % 0.5 % (0.0-2.0); EOS # 0.3 (0.0-0.7); EOS % 4.4 % (0-4.0); GRAN # 4.9 (1.4-6.5); HEMATOCRIT 40.6 % (42.0-52.0); HEMOGLOBIN 13.7 g/dl (13.5-18.0); LYMPH # 1.2 (1.2-3.4); LYMPH % 16.7 % (20.0-51.0); MEAN CELL VOLUME 96 fl (80.0-100.0); MEAN CORPUSCULAR HEMOGLOBIN 32 pg (27.0-31.0); MEAN CORPUSCULAR HGB CONC 34 g/dl (33.0-37.0); MONO # 0.8 (0.1-0.6); MONO % 10.7 % (1.7-9.3); PLATELET COUNT 158 K/mm3 (130-400); RED BLOOD COUNT 4.23 M/mm3 (4.20-5.60); REDCELL DISTRIBUTION WIDTH-CV 14.2 % (11.5-14.5)
[2020-10-30 09:52] LABS: ERYTHROCYTE SEDIMENTATION RATE 11 mm/hr (0-30)
[2020-10-30 09:58] LABS: ALBUMIN 3.7 gm/dL (3.5-5.0); BILIRUBIN,TOTAL 0.7 mg/dL (0.0-1.0); C-REACTIVE PROTEIN 1.7 mg/dL (0.0-0.9); CALCIUM 9.1 mg/dL (8.4-10.2); CREATININE, serum 0.83 (0.66-1.25); POTASSIUM 4.3 mmol/L (3.4-5.0); TOTAL PROTEIN 7.2 gm/dL (6.4-8.2)
[2020-10-31 08:38] VITALS: BP 129/81; PULSE 79; TEMP 97.9
--- NOTE | 2020-10-31 08:55 | NUR ---
Pt reports he has a surgical apt follow up in [place] today at 1030.
--- NOTE | 2020-11-01 09:24 | NUR ---
Per pt report he seen surgeon yesterday,reports they "drained it".New dressing observed at site.Pt to see RICARDO Tapia wound nurse tomorrow for follow up.No neck dressing change today.
[2020-11-01 09:25] VITALS: BP 132/77; PULSE 70; TEMP 98.6
[2020-11-02 09:11] VITALS: BP 118/67; PULSE 72; TEMP 97
[2020-11-03 09:02] VITALS: BP 132/69; PULSE 76; TEMP 98.3
[2020-11-04 08:13] VITALS: BP 131/86; PULSE 71; TEMP 98.6
[2020-11-05 08:15] VITALS: BP 155/82; PULSE 70; TEMP 98.4
[2020-11-06 09:23] VITALS: BP 143/85; PULSE 71; TEMP 98.6
[2020-11-06 10:04] LABS: BASO % 0.6 % (0.0-2.0); EOS # 0.4 (0.0-0.7); EOS % 5.7 % (0-4.0); GRAN # 4.7 (1.4-6.5); GRAN % 66.5 % (42.2-75.2); HEMOGLOBIN 13.4 g/dl (13.5-18.0); LYMPH # 1.2 (1.2-3.4); LYMPH % 17.2 % (20.0-51.0); MEAN CELL VOLUME 96 fl (80.0-100.0); MEAN CORPUSCULAR HEMOGLOBIN 32 pg (27.0-31.0); MEAN CORPUSCULAR HGB CONC 34 g/dl (33.0-37.0); MEAN PLATELET VOLUME 9.4 fl (7.4-10.4); MONO # 0.7 (0.1-0.6); MONO % 9.6 % (1.7-9.3); PLATELET COUNT 173 K/mm3 (130-400); RED BLOOD COUNT 4.19 M/mm3 (4.20-5.60); REDCELL DISTRIBUTION WIDTH-CV 14.1 % (11.5-14.5)
[2020-11-06 10:19] LABS: ALBUMIN 3.7 gm/dL (3.5-5.0); BILIRUBIN,TOTAL 0.3 mg/dL (0.0-1.0); C-REACTIVE PROTEIN 1.7 mg/dL (0.0-0.9); CALCIUM 9.1 mg/dL (8.4-10.2); CREATININE, serum 0.75 (0.66-1.25); POTASSIUM 4.3 mmol/L (3.4-5.0)
[2020-11-06 10:31] LABS: ERYTHROCYTE SEDIMENTATION RATE 13 mm/hr (0-30)
[2020-11-07 07:26] VITALS: BP 125/68; PULSE 65; TEMP 98.4
[2020-11-08 09:19] VITALS: BP 116/67; PULSE 70; TEMP 98.5
[2020-11-09 09:27] VITALS: BP 156/88; PULSE 72; TEMP 97.9
[2020-11-10 09:15] VITALS: BP 105/56; PULSE 72; TEMP 98.1
[2020-11-11 08:17] VITALS: BP 149/91; PULSE 69; TEMP 98.3
[2020-11-12 08:00] VITALS: BP 147/77; PULSE 75; TEMP 98.1
[2020-11-13 09:35] LABS: BASO # 0.1 (0.0-0.2); BASO % 0.7 % (0.0-2.0); EOS # 0.4 (0.0-0.7); EOS % 5.5 % (0-4.0); GRAN # 4.3 (1.4-6.5); GRAN % 61.4 % (42.2-75.2); HEMATOCRIT 41.8 % (42.0-52.0); HEMOGLOBIN 14.1 g/dl (13.5-18.0); LYMPH # 1.4 (1.2-3.4); MEAN CELL VOLUME 95 fl (80.0-100.0); MEAN CORPUSCULAR HEMOGLOBIN 32 pg (27.0-31.0); MEAN CORPUSCULAR HGB CONC 34 g/dl (33.0-37.0); MEAN PLATELET VOLUME 9.3 fl (7.4-10.4); MONO # 0.8 (0.1-0.6); MONO % 11.8 % (1.7-9.3); PLATELET COUNT 186 K/mm3 (130-400); REDCELL DISTRIBUTION WIDTH-CV 14.1 % (11.5-14.5)
[2020-11-13 09:40] VITALS: BP 146/81; PULSE 73; TEMP 98.4
[2020-11-13 09:48] LABS: ALBUMIN 3.9 gm/dL (3.5-5.0); BILIRUBIN,TOTAL 0.5 mg/dL (0.0-1.0); C-REACTIVE PROTEIN 1.7 mg/dL (0.0-0.9); CALCIUM 9.3 mg/dL (8.4-10.2); CREATININE, serum 0.74 (0.66-1.25); POTASSIUM 4.5 mmol/L (3.4-5.0); TOTAL PROTEIN 7.5 gm/dL (6.4-8.2)
[2020-11-13 09:59] LABS: ERYTHROCYTE SEDIMENTATION RATE 16 mm/hr (0-30)
[2020-11-14 09:53] VITALS: BP 129/78; PULSE 76; TEMP 98.2
[2020-11-15 09:23] VITALS: BP 144/77; PULSE 70; TEMP 98.3
[~2020-11-16] VITALS: Ht 172.7 cm; Wt 86.4 kg
[2020-11-16 09:05] VITALS: BP 119/72; PULSE 74; TEMP 98.5
--- NOTE | 2020-11-16 12:02 | NUR ---
Pt returned after ID apt for PICC removal.Pt waited 30 minutes post picc removal.No bleeding at site observed.Pt assisted to car via wheelchair.
== END 2020-11-16 12:03 | disposition still patient (30) ==
LOC: EUO 09:00
PROVIDERS: Internal Medicine Infectious Disease
DX: M86.9 Osteomyelitis, unspecified (principal); B99.9 Unspecified infectious disease; Z79.899 Other long term (current) drug therapy
CPT/HCPCS: J0878; J2997

== ENCOUNTER → 2020-11-29 | Outpatient (CLI) | payer MEDICARE ==
[2020-11-29 11:07] LABS: BASO % 0.6 % (0.0-2.0); EOS # 0.2 (0.0-0.7); EOS % 3.6 % (0-4.0); GRAN # 4.1 (1.4-6.5); GRAN % 64.6 % (42.2-75.2); HEMATOCRIT 40.7 % (42.0-52.0); HEMOGLOBIN 13.8 g/dl (13.5-18.0); LYMPH # 1.2 (1.2-3.4); LYMPH % 19.1 % (20.0-51.0); MEAN CELL VOLUME 96 fl (80.0-100.0); MEAN CORPUSCULAR HEMOGLOBIN 33 pg (27.0-31.0); MEAN CORPUSCULAR HGB CONC 34 g/dl (33.0-37.0); MEAN PLATELET VOLUME 9.2 fl (7.4-10.4); MONO # 0.7 (0.1-0.6); MONO % 11.5 % (1.7-9.3); PLATELET COUNT 152 K/mm3 (130-400); RED BLOOD COUNT 4.22 M/mm3 (4.20-5.60); REDCELL DISTRIBUTION WIDTH-CV 13.9 % (11.5-14.5)
[2020-11-29 11:27] LABS: ALBUMIN 3.8 gm/dL (3.5-5.0); BILIRUBIN,TOTAL 0.4 mg/dL (0.0-1.0); C-REACTIVE PROTEIN 0.9 mg/dL (0.0-0.9); CALCIUM 9.1 mg/dL (8.4-10.2); CREATININE, serum 0.85 (0.66-1.25); POTASSIUM 4.3 mmol/L (3.4-5.0); TOTAL PROTEIN 7.2 gm/dL (6.4-8.2)
[2020-11-29 11:43] LABS: ERYTHROCYTE SEDIMENTATION RATE 9 mm/hr (0-30)
== END ==
LOC: COL.LAB 10:31
PROVIDERS: Nurse Practitioner
DX: B99.9 Unspecified infectious disease (principal)

== ENCOUNTER → 2020-11-30 | Outpatient (CLI) | payer MEDICARE | LOC: ZCOL.LAB 16:04 | DX: T81.30XD Disruption of wound, unspecified, subsequent encounter (principal) ==

== ENCOUNTER → 2021-02-05 | Outpatient (CLI) | payer MEDICARE ==
[2021-02-05 12:07] LABS: BASO % 0.5 % (0.0-2.0); EOS # 0.2 (0.0-0.7); EOS % 3.3 % (0-4.0); GRAN # 4.8 (1.4-6.5); GRAN % 65.7 % (42.2-75.2); HEMATOCRIT 40.1 % (42.0-52.0); HEMOGLOBIN 13.5 g/dl (13.5-18.0); LYMPH # 1.3 (1.2-3.4); LYMPH % 17.9 % (20.0-51.0); MEAN CELL VOLUME 97 fl (80.0-100.0); MEAN CORPUSCULAR HEMOGLOBIN 33 pg (27.0-31.0); MEAN CORPUSCULAR HGB CONC 34 g/dl (33.0-37.0); MEAN PLATELET VOLUME 9.1 fl (7.4-10.4); MONO # 0.9 (0.1-0.6); MONO % 11.9 % (1.7-9.3); PLATELET COUNT 165 K/mm3 (130-400); RED BLOOD COUNT 4.12 M/mm3 (4.20-5.60)
[2021-02-05 12:22] LABS: ALBUMIN 3.8 gm/dL (3.5-5.0); BILIRUBIN,TOTAL 0.4 mg/dL (0.0-1.0); C-REACTIVE PROTEIN 0.8 mg/dL (0.0-0.9); CALCIUM 9.3 mg/dL (8.4-10.2); CREATININE, serum 1.06 (0.66-1.25); POTASSIUM 4.9 mmol/L (3.4-5.0); TOTAL PROTEIN 7.1 gm/dL (6.4-8.2)
[2021-02-05 12:40] LABS: ERYTHROCYTE SEDIMENTATION RATE 11 mm/hr (0-30)
== END ==
LOC: COL.LAB 10:28
PROVIDERS: Internal Medicine Pulmonary Disease
DX: B99.9 Unspecified infectious disease (principal)

== ENCOUNTER → 2021-03-05 | Outpatient (CLI) | payer MEDICARE ==
[2021-03-05 11:03] LABS: BASO % 0.6 % (0.0-2.0); EOS # 0.2 (0.0-0.7); EOS % 2.6 % (0-4.0); GRAN # 4.4 (1.4-6.5); GRAN % 65.2 % (42.2-75.2); HEMATOCRIT 41.4 % (42.0-52.0); HEMOGLOBIN 14.1 g/dl (13.5-18.0); LYMPH # 1.4 (1.2-3.4); LYMPH % 19.8 % (20.0-51.0); MEAN CELL VOLUME 97 fl (80.0-100.0); MEAN CORPUSCULAR HEMOGLOBIN 33 pg (27.0-31.0); MEAN CORPUSCULAR HGB CONC 34 g/dl (33.0-37.0); MEAN PLATELET VOLUME 9.4 fl (7.4-10.4); MONO # 0.8 (0.1-0.6); MONO % 11.2 % (1.7-9.3); PLATELET COUNT 150 K/mm3 (130-400); RED BLOOD COUNT 4.29 M/mm3 (4.20-5.60); REDCELL DISTRIBUTION WIDTH-CV 13.9 % (11.5-14.5)
[2021-03-05 11:15] LABS: ALBUMIN 3.9 gm/dL (3.5-5.0); BILIRUBIN,TOTAL 0.5 mg/dL (0.0-1.0); C-REACTIVE PROTEIN 0.9 mg/dL (0.0-0.9); CALCIUM 9.2 mg/dL (8.4-10.2); CREATININE, serum 0.96 (0.66-1.25); POTASSIUM 4.4 mmol/L (3.4-5.0); TOTAL PROTEIN 7.1 gm/dL (6.4-8.2)
[2021-03-05 11:28] LABS: ERYTHROCYTE SEDIMENTATION RATE 6 mm/hr (0-30)
== END ==
LOC: COL.LAB 10:42
PROVIDERS: Nurse Practitioner
DX: B99.9 Unspecified infectious disease (principal)

== ENCOUNTER → 2021-03-29 | Outpatient (CLI) | payer MEDICARE ==
[2021-03-29 11:55] LABS: BASO % 0.4 % (0.0-2.0); EOS # 0.1 (0.0-0.7); EOS % 1.6 % (0-4.0); GRAN # 5.6 (1.4-6.5); HEMATOCRIT 42.9 % (42.0-52.0); HEMOGLOBIN 14.3 g/dl (13.5-18.0); LYMPH # 1.1 (1.2-3.4); LYMPH % 14.6 % (20.0-51.0); MEAN CELL VOLUME 101 fl (80.0-100.0); MEAN CORPUSCULAR HEMOGLOBIN 34 pg (27.0-31.0); MEAN CORPUSCULAR HGB CONC 33 g/dl (33.0-37.0); MEAN PLATELET VOLUME 9.3 fl (7.4-10.4); MONO # 0.6 (0.1-0.6); MONO % 7.9 % (1.7-9.3); PLATELET COUNT 130 K/mm3 (130-400); RED BLOOD COUNT 4.26 M/mm3 (4.20-5.60); REDCELL DISTRIBUTION WIDTH-CV 14.1 % (11.5-14.5)
[2021-03-29 12:05] LABS: ALBUMIN 3.9 gm/dL (3.5-5.0); BILIRUBIN,TOTAL 0.8 mg/dL (0.0-1.0); CALCIUM 9.1 mg/dL (8.4-10.2); CREATININE, serum 1.23 (0.66-1.25); POTASSIUM 4.6 mmol/L (3.4-5.0); TOTAL PROTEIN 6.9 gm/dL (6.4-8.2)
== END ==
LOC: COL.LAB 11:19
PROVIDERS: Internal Medicine Infectious Disease
DX: A31.9 Mycobacterial infection, unspecified (principal)

== ENCOUNTER → 2021-04-25 | Outpatient (CLI) | payer MEDICARE ==
[2021-04-25 13:36] LABS: BASO % 0.6 % (0.0-2.0); EOS # 0.1 K/mm3 (0.0-0.7); EOS % 1.4 % (0-4.0); GRAN # 4.8 K/mm3 (1.4-6.5); GRAN % 72.4 % (42.2-75.2); HEMATOCRIT 40.3 % (42.0-52.0); HEMOGLOBIN 13.9 g/dl (13.5-18.0); LYMPH # 0.9 K/mm3 (1.2-3.4); LYMPH % 13.6 % (20.0-51.0); MEAN CELL VOLUME 97 fl (80.0-100.0); MEAN CORPUSCULAR HEMOGLOBIN 34 pg (27.0-31.0); MEAN CORPUSCULAR HGB CONC 35 g/dl (33.0-37.0); MEAN PLATELET VOLUME 9.1 fl (7.4-10.4); MONO # 0.7 K/mm3 (0.1-0.6); MONO % 11.1 % (1.7-9.3); PLATELET COUNT 145 K/mm3 (130-400); RED BLOOD COUNT 4.15 M/mm3 (4.20-5.60)
[2021-04-25 13:57] LABS: ALBUMIN 3.3 gm/dL (3.4-4.8); BILIRUBIN,TOTAL 0.4 mg/dL (0.2-1.2); C-REACTIVE PROTEIN 0.5 mg/dL (0.00-0.50); CALCIUM 8.9 mg/dL (8.4-10.2); CREATININE, serum 0.99 mg/dL (0.72-1.25); TOTAL PROTEIN 6.5 gm/dL (6.2-8.1)
[2021-04-25 14:37] LABS: ERYTHROCYTE SEDIMENTATION RATE 7 mm/hr (0-30)
== END ==
LOC: COL.LAB 10:04 → ZCOL.LAB 10:04
PROVIDERS: Nurse Practitioner
DX: B99.9 Unspecified infectious disease (principal)

== ENCOUNTER → 2021-08-03 | Outpatient (CLI) | payer MEDICARE ==
[2021-08-03 14:23] LABS: BASO % 0.3 % (0.0-2.0); EOS # 0.4 K/mm3 (0.0-0.7); EOS % 3.8 % (0.0-4.0); GRAN # 7.5 K/mm3 (1.4-6.5); GRAN % 74.4 % (42.2-75.2); HEMATOCRIT 41.2 % (42.0-52.0); HEMOGLOBIN 13.9 g/dl (13.5-18.0); LYMPH % 9.6 % (20.0-51.0); MEAN CELL VOLUME 97 fl (80.0-100.0); MEAN CORPUSCULAR HEMOGLOBIN 33 pg (27-31); MEAN CORPUSCULAR HGB CONC 34 g/dl (33.0-37.0); MEAN PLATELET VOLUME 9.2 fl (7.4-10.4); MONO # 1.1 K/mm3 (0.1-0.6); PLATELET COUNT 151 K/mm3 (130-400); RED BLOOD COUNT 4.24 M/mm3 (4.20-5.60); REDCELL DISTRIBUTION WIDTH-CV 13.3 % (11.5-14.5)
[2021-08-03 14:39] LABS: ALBUMIN 3.4 gm/dL (3.4-4.8); BILIRUBIN,TOTAL 0.7 mg/dL (0.2-1.2); C-REACTIVE PROTEIN 2.12 mg/dL (0.00-0.50); CREATININE, serum 1.39 mg/dL (0.72-1.25); POTASSIUM 4.5 mmol/L (3.5-4.5); TOTAL PROTEIN 6.8 gm/dL (6.2-8.1)
[2021-08-03 14:50] LABS: ERYTHROCYTE SEDIMENTATION RATE 9 mm/hr (0-30)
== END ==
LOC: COL.LAB 14:03
PROVIDERS: Nurse Practitioner
DX: B99.9 Unspecified infectious disease (principal)

== ENCOUNTER → 2021-12-26 | Outpatient (CLI) | payer MEDICARE ==
[~2021-12-26] MED LIST changes: +AMOXICILLIN875 MG PO; +ARTIFICIAL TEAR15 M7 OU; +ASPERCREME1 EACH; +ASPIRIN 81M81 MG/TA2; +DECADRON6 MG PO; +DEEP SEA 45 ML45 ML NS; +DOXYCYCLINE HY100 MG PO; +FLONASE NASAL S16 GM NS; +GLUCOPHAGE XR500 M1 PO; +GLUCOPHAGE500 MG/TAB; +GLUCOPHAGE500 MG/TAB PO; +HUMALOG100 U/ML SQ; +IPRATROPIUM BROM3 M1 IH; +LOPRESSOR 225 MG/TAB; +MELATIN 3 MG-11 TAB PO; +MIRALAX PA17 GM/Dose PO; +MUCUS RELIEF200 MG PO; +NORVASC2.5 MG PO; +OMNICEF 300MG300 MG PO; +PREDNISONE20 MG PO; +PROBIOTIC DIGE1 EACH PO; +PROTONIX 40MG T40 MG PO; +ROBITUSSIN100 MG/5 M; +ROBITUSSIN100 MG/5 M PO; +SENNA-S 50 MG-81 TAB PO; +SYNTHROID0.05 MG/TA PO; +TUMS500 MG PO; +TYLENOL 325MG325 MG; +VANCOCIN HCL1 GM IV; +ZOSYN 4 GM-0.51 PD1 IV
== END ==
LOC: ZLAB.STJ 13:36
DX: E87.1 Hypo-osmolality and hyponatremia (principal); M62.81 Muscle weakness (generalized)

== ENCOUNTER 2022-01-04 21:51 | Inpatient (IN) | payer OTHER, MEDICARE ==
[~2022-01-04] VITALS: Ht 172.7 cm; Wt 82.4 kg
[~2022-01-04 21:51] MED LIST changes: -ARTIFICIAL TEAR15 M7 OU; -ASPERCREME1 EACH; -ASPIRIN 81M81 MG/TA2; -DECADRON6 MG PO; -DEEP SEA 45 ML45 ML NS; -FLONASE NASAL S16 GM NS; -GLUCOPHAGE XR500 M1 PO; -GLUCOPHAGE500 MG/TAB; -GLUCOPHAGE500 MG/TAB PO; -HUMALOG100 U/ML SQ; -IPRATROPIUM BROM3 M1 IH; -LOPRESSOR 225 MG/TAB; -MELATIN 3 MG-11 TAB PO; -MIRALAX PA17 GM/Dose PO; -NORVASC2.5 MG PO; -PROTONIX 40MG T40 MG PO; -ROBITUSSIN100 MG/5 M; -ROBITUSSIN100 MG/5 M PO; -SENNA-S 50 MG-81 TAB PO; -TUMS500 MG PO; -TYLENOL 325MG325 MG; -VANCOCIN HCL1 GM IV; -ZOSYN 4 GM-0.51 PD1 IV
[2022-01-04 22:45] LABS: HEMATOCRIT 37.5 % (42.0-52.0); MEAN CELL VOLUME 97 fl (80.0-100.0); MEAN CORPUSCULAR HEMOGLOBIN 34 pg (27-31); MEAN CORPUSCULAR HGB CONC 35 g/dl (33.0-37.0); MEAN PLATELET VOLUME 10.5 fl (7.4-10.4); PLATELET COUNT 135 K/mm3 (130-400); RED BLOOD COUNT 3.87 M/mm3 (4.20-5.60); REDCELL DISTRIBUTION WIDTH-CV 13.7 % (11.5-14.5)
[2022-01-04 22:46] LABS: ARTERIAL BLD GAS O2 SATURATION 95.6 % (92-100); ARTERIAL BLD GAS TCO2 CT 24.5; ARTERIAL BLOOD GAS HCO3 23.5 meq/L (22-26); ARTERIAL BLOOD GAS PCO2 34.3 mmHg (35-45); ARTERIAL BLOOD GAS PO2 79.3 mmHg (80-100); ARTERIAL BLOOD GAS pH 7.45 (7.35-7.45)
[2022-01-04 23:03] LABS: ALBUMIN 2.9 gm/dL (3.4-4.8); BILIRUBIN,TOTAL 1.5 mg/dL (0.2-1.2); CALCIUM 8.7 mg/dL (8.4-10.2); CREATININE, serum 0.98 mg/dL (0.72-1.25); POTASSIUM 4.3 mmol/L (3.5-4.5); TOTAL PROTEIN 6.6 gm/dL (6.2-8.1)
[2022-01-04 23:09] LABS: BAND 4 % (0-10); EOSINOPHIL 1 % (0-4); LYMPHOCYTE 6 % (20.0-51.0); METAMYELOCYTE 1 % (0-0); NEUTROPHILS 82 % (42.0-75.2); PLATELET ESTIMATE NORMAL (NORMAL)
[2022-01-04 23:13] LABS: TROPONIN-I 0.036 ng/mL (0.00-0.033)
[2022-01-04] MEDS ORDERED: MELATIN 3 MG-11 TAB PO (23:50)
[2022-01-04] MEDS ORDERED: GLUCOPHAGE500 MG/TAB PO (23:52)
[2022-01-04] MEDS ORDERED: LASIX 20MG TABL20 MG PO (23:53)
[2022-01-04] MEDS ORDERED: MIRALAX PA17 GM/Dose PO (23:54)
[2022-01-04] MEDS ORDERED: TUMS500 MG PO (23:56)
[2022-01-05] VITALS (7 sets, daily range): BP systolic 133–167; BP diastolic 65–81; PULSE 69–74; TEMP 97.4–98.7
[2022-01-05] MEDS ORDERED: PROTONIX 40MG T40 MG PO (00:02)
[2022-01-05] MEDS ORDERED: ULTRAM 50MG TAB50 MG PO (00:03)
--- NOTE | 2022-01-05 03:13 | NUR ---
Pt alert and oriented, resting quietly, follows commands. Pt appears drowsy and falls asleep quickly, but is alert to speech. Pt states he has been feeling very weak and has had "many falls" in the past few months d/t weakness. Denies chest pain/SOB/abdominal pain currently. Reports he fluctuates between diarrhea and constipation. Intake assessment and admission assessments performed. Allx confirmed. Med rx completed and reviewed. COVID and infectious disease assessments performed. Isolation precautions enforced until respiratory virus panel results. VS stable. BP is elevated. HR NSR, paced with external pacer. Currently satting WNL on 3L NC, was on 6L oxymask in ED. No significant skin issues noted. Scattered bruising noted on BUE/BLE. Pt provided with nourishment. Porras catheter noted, placed in ED. Adequate urine output noted. Pt does not report any questions at this time, will continue to monitor.
[2022-01-05] MEDS ORDERED: GLUCOPHAGE XR500 M1 PO (03:57)
--- NOTE | 2022-01-05 04:05 | NUR ---
REPORTED CRITICAL TROPONIN LAB OF 0.039 TO AMBER HARDY APRN. GIVEN VERBAL PHONE ORDER TO PLACE ANOTHER ORDER FOR A TROPONIN LAB AT 0500.
--- NOTE | 2022-01-05 05:49 | NUR ---
89 yo male admitted for further care and management of acute respiratory failure and sepsis of likely pulmonary source. ht 172.7 cm wt 82.4 kg SCr 0.98 with estimated CrCl ~45 ml/min half life 19.2 hours Plan: Will give an initial loading dose of vancomycin 1500 mg x1 (18.2 mg/kg); followed by a maintenance regimen of vancomycin 1250 mg q18h to target a goal trough of 15-20 mcg/ml. Will follow patient's renal function, micro data, and vancomycin levels as indicated to assess for any necessary changes to regimen. Thank you for this consult.
--- NOTE | 2022-01-05 07:00 | NUR ---
PT RESTING IN BED. PT DENIES NEEDS AT THIS TIME. CALL LIGHT WITHIN REACH.
--- NOTE | 2022-01-05 07:29 | NUR ---
No adverse events overnight. Pt alert and oriented, still drowsy, but follows commands and is alert to speech. Up with one assist to bathroom. Porras catheter remains in place with adequate urine output. Droplet isolation precautions are enforced. Pt tolerated medications per orders with water. Medication education provided. Pt continues with IV antibx and IV steroids. VS stable, BP runs elevated. Pt satting WNL on 3L NC. Pt resting quietly, does not report any questions at this time. Will continue to monitor.
--- NOTE | 2022-01-05 14:16 | NUR ---
Emiliano met with the pt to complete intake. Pt lives at home with his , Dano [phone]. Pt reports he is independent on all ADLs but does use a motorize scooter, walker, and cane. Pt PCP is [place] and gets medications from [facility]. Pt daughter is in town helping out, as his has knee surgery on the 10 of january. Pt reports he has DPOA-HC and does not need a paperwork. PT is monitoring. DC: Rehab vs home.
[2022-01-06 05:02] VITALS: BP 120/83; PULSE 70; TEMP 98
--- NOTE | 2022-01-06 07:03 | NUR ---
pt on 2.5L O2 per NC this shift, alert and oriented x3, but forgetful @times. SSI given @elizabet patent and secure. new IV placed per NGUYỄN Oliva during the noc. tramadol requested x1 for discomfort, able to sleep afterwards
[2022-01-06 07:16] LABS: ALBUMIN 2.4 gm/dL (3.4-4.8); CALCIUM 8.3 mg/dL (8.4-10.2); CREATININE, serum 0.95 mg/dL (0.72-1.25); MAGNESIUM 1.8 mg/dL (1.6-2.6); PHOSPHOROUS 3.1 mg/dL (2.3-4.7); POTASSIUM 3.5 mmol/L (3.5-4.5)
[2022-01-06 08:18] LABS: BASO % 0.1 % (0.0-2.0); GRAN # 10.3 K/mm3 (1.4-6.5); GRAN % 89.2 % (42.2-75.2); HEMOGLOBIN 11.7 g/dl (13.5-18.0); LYMPH # 0.5 K/mm3 (1.2-3.4); LYMPH % 4.5 % (20.0-51.0); MEAN CELL VOLUME 99 fl (80.0-100.0); MEAN CORPUSCULAR HEMOGLOBIN 33 pg (27-31); MEAN CORPUSCULAR HGB CONC 34 g/dl (33.0-37.0); MEAN PLATELET VOLUME 10.3 fl (7.4-10.4); MONO # 0.6 K/mm3 (0.1-0.6); MONO % 5.2 % (1.7-9.3); PLATELET COUNT 134 K/mm3 (130-400); RED BLOOD COUNT 3.51 M/mm3 (4.20-5.60); REDCELL DISTRIBUTION WIDTH-CV 13.5 % (11.5-14.5)
[2022-01-06 08:32] LABS: HEMATOCRIT 34.7 % (42.0-52.0)
[2022-01-06 08:43] VITALS: BP 111/60; PULSE 74; TEMP 97.5
--- NOTE | 2022-01-06 09:00 | NUR ---
Patient is resting in bed, alert and oriented x 4, VSS. Telemetry in place, RH 80'S. TEDS in place, BLE edema. 2 1/2 L O2 NC. Catheter mcneal in place, clear yellow urine. Assessment completed, meds provided, no other needs at this time. Call light within reach.
[2022-01-06 12:00] VITALS: BP 124/67; PULSE 73; TEMP 97.7
[2022-01-06 16:27] VITALS: BP 113/69; PULSE 100; TEMP 97.7
--- NOTE | 2022-01-06 18:36 | NUR ---
Patient has been stable along the day, receiving all his antibiotics and eating well. No sputum production. Report will be given to night RN.
--- NOTE | 2022-01-06 20:24 | NUR ---
TX GIVEN VIA MASK, TOLERATED WELL. PLACED BACK ON 2L NC AFTER TX.
[2022-01-06 20:30] VITALS: BP 134/63; PULSE 68; TEMP 98.7
--- NOTE | 2022-01-06 20:30 | NUR ---
Initial shift assessment done- sitting at edge of bed, relaxing, no requests, Alert/Oriented, Tele on 80/min paced, o2 reduced to 2L/nc from 3L/nc at this time by respiratory therapy, Lung sounds decreased in the bases, denies pain/SOB- using call light appropriately, bed alarm on.
[2022-01-06 23:48] VITALS: BP 152/72; PULSE 93; TEMP 97.4
--- NOTE | 2022-01-07 00:15 | NUR ---
R/FA IV site infiltrated- dc,d at this time, warm compress applied- new INT site started to left wrist 22g.
--- NOTE | 2022-01-07 01:17 | NUR ---
Porras has been leaking consistently -did deflate balloon [8cc], added an additional 2 cc to balloon-- initially seemed to help with leaking but did not last-- Zaida TELECOMMUNICATIONS SPECIALIST called, order to just dc Porras at this time- pt did states he had some burning with the leaking- Zaida aware- will see how he does with burning after the catheter is removed-
[2022-01-07 04:13] VITALS: BP 149/73; PULSE 76; TEMP 97.5
--- NOTE | 2022-01-07 05:54 | NUR ---
Did not sleep much last night-- has urinated 4-5 times since Porras was dc,d during the night- no complaints of burning. Morning CXR has been completed. RFA IV site edema is much improved-
[2022-01-07 07:25] LABS: HEMOGLOBIN 12.5 g/dl (13.5-18.0); MEAN CELL VOLUME 99 fl (80.0-100.0); MEAN CORPUSCULAR HEMOGLOBIN 34 pg (27-31); MEAN CORPUSCULAR HGB CONC 34 g/dl (33.0-37.0); MEAN PLATELET VOLUME 10.1 fl (7.4-10.4); PLATELET COUNT 162 K/mm3 (130-400); RED BLOOD COUNT 3.72 M/mm3 (4.20-5.60); REDCELL DISTRIBUTION WIDTH-CV 13.7 % (11.5-14.5)
[2022-01-07 07:27] LABS: HEMATOCRIT 36.7 % (42.0-52.0)
[2022-01-07 07:44] VITALS: BP 134/86; PULSE 77; TEMP 97.9
[2022-01-07 07:45] LABS: ALBUMIN 2.7 gm/dL (3.4-4.8); CALCIUM 8.5 mg/dL (8.4-10.2); CREATININE, serum 1.26 mg/dL (0.72-1.25); MAGNESIUM 1.9 mg/dL (1.6-2.6); PHOSPHOROUS 2.7 mg/dL (2.3-4.7); POTASSIUM 3.5 mmol/L (3.5-4.5)
--- NOTE | 2022-01-07 08:00 | NUR ---
Patient is resting in bed, alert and partially oriented. Telemetry in place, afib. TEDs placed. Continue receiving antibiotics. Assessment completed, no other needs at this time. Call light within reach, bed alarm on.
[2022-01-07 09:34] LABS: BAND 9 % (0-10); LYMPHOCYTE 6 % (20.0-51.0); NEUTROPHILS 83 % (42.0-75.2); PLATELET ESTIMATE NORMAL (NORMAL)
[2022-01-07 11:44] VITALS: BP 142/72; PULSE 80; TEMP 98
--- NOTE | 2022-01-07 15:38 | NUR ---
Purchasing Analyst met with patient to discuss discharge plan and patient states he does not have a plan at this time. Patient isn't sure what he wants to do and invited SW to contact his and daughter to discuss SNF vs Home Health. MARGARETTE contacted patient's daughter, Jazmyne and she put SW on speakerphone with her and patient's , Kate. Jazmyne advised patient may need SNF depending on DC date and was open to having referrals sent to [facility] and [facility]. Patient was recently at [facility] and Jazmyne advised this is where his sister lives. MARGARETTE contacted both facilities and faxed referral. Discharge Plan: Possible SNF, referrals pending
[2022-01-07 16:00] VITALS: BP 153/70; PULSE 71; TEMP 98.1
--- NOTE | 2022-01-07 16:06 | NUR ---
Patient came back to the unit right now, alert and oriented, startng monitoring vital signs. radial band in right side. Continue monitoring.
--- NOTE | 2022-01-07 19:18 | NUR ---
Patient has had all his meals, continues with 2L O2, and getting his antibiotics. He removed his IV, hygiene provided, gown and linens changed. Report given to selena ADRIAN.
[2022-01-07 20:23] VITALS: BP 168/73; PULSE 70; TEMP 97.6
--- NOTE | 2022-01-07 20:30 | NUR ---
Initial shift assessment done- new INT started to right wrist area 22g,, sitting at edge of bed, no requests, alert/overall oriented x4- pleasant, states he is still very weak, o2 at 3L/nc - sats 91%, Tele on-paced 76/min, bed alalrm on- close to nursing station-
[2022-01-07 23:54] VITALS: BP 137/83; PULSE 91; TEMP 98
[2022-01-08 03:54] VITALS: BP 137/68; PULSE 73; TEMP 97.6
--- NOTE | 2022-01-08 04:11 | NUR ---
RN requested I do not wake pt at this time as he is sleeping.
--- NOTE | 2022-01-08 04:54 | NUR ---
Pt did get some sleep last night- VSS, o2 sats 94% on the 3L/nc, using his IS during the night,,was up to bathroom with walker/assist x2 to void--
[2022-01-08 07:26] LABS: BASO % 0.2 % (0.0-2.0); GRAN % 82.5 % (42.2-75.2); HEMOGLOBIN 11.7 g/dl (13.5-18.0); LYMPH # 0.9 K/mm3 (1.2-3.4); LYMPH % 7.6 % (20.0-51.0); MEAN CELL VOLUME 96 fl (80.0-100.0); MEAN CORPUSCULAR HEMOGLOBIN 33 pg (27-31); MEAN CORPUSCULAR HGB CONC 35 g/dl (33.0-37.0); MEAN PLATELET VOLUME 9.9 fl (7.4-10.4); MONO % 8.5 % (1.7-9.3); PLATELET COUNT 149 K/mm3 (130-400); RED BLOOD COUNT 3.52 M/mm3 (4.20-5.60); REDCELL DISTRIBUTION WIDTH-CV 13.7 % (11.5-14.5)
[2022-01-08 07:38] LABS: HEMATOCRIT 33.7 % (42.0-52.0)
[2022-01-08 07:57] LABS: ALBUMIN 2.3 gm/dL (3.4-4.8); CALCIUM 8.2 mg/dL (8.4-10.2); CREATININE, serum 0.82 mg/dL (0.72-1.25); PHOSPHOROUS 2.5 mg/dL (2.3-4.7); POTASSIUM 3.7 mmol/L (3.5-4.5)
--- NOTE | 2022-01-08 08:29 | NUR ---
PT BG 56 Dextrose chewable provided. Continue monitoring.
--- NOTE | 2022-01-08 08:31 | NUR ---
Matilde, at [facility], reports that they declined the patient.
[2022-01-08 08:54] VITALS: BP 98/50; PULSE 78; TEMP 98.2
--- NOTE | 2022-01-08 09:00 | NUR ---
Patient is sitting in chair, alert and oriented x 3, VSS, Telemetry in place, afib, HR WNL. Starting to walking more with assisstance. Continue receiving medications. O2 NC 2.5 L. Assessment completed, meds provided. No other needs at this time. Call light within reach.
[2022-01-08 13:21] VITALS: BP 140/62; PULSE 78; TEMP 98
--- NOTE | 2022-01-08 13:59 | NUR ---
Baggage Checker spoke with Davis at [facility] who advised they can accept as long as patient and family understand that they have covid positives in their building and patient may be in the same court as the positives. MARGARETTE contacted patient's daughter, Jazmyne to provide update. Jazmyne is agreeable to placement at [facility] and was already aware there were positives in the building. Jazmyne advised she will need time to contact the [facility] for authorization. MARGARETTE advised that [facility] will likely utilize patient's medicare benefit first. MARGARETTE discussed possible discharge date of tomorrow with Jazmyne who advised patient is under the impression he will be in the hospital another week.
[2022-01-08 15:52] VITALS: BP 144/75; PULSE 70; TEMP 97.8
--- NOTE | 2022-01-08 18:58 | NUR ---
Patient has had a calm day. He continues getting antibiotics. He is at 3L O2 NC. Report given to night RN.
[2022-01-08 20:05] VITALS: BP 140/71; PULSE 85; TEMP 97.7
[2022-01-09 00:02] VITALS: BP 158/80; PULSE 77; TEMP 97.7
--- NOTE | 2022-01-09 01:02 | NUR ---
PATIENT UP IN BATHROOM NAKED REINFORCED TO WAIT FOR ASSISTANCE TO PREVENT FALL. PATIENT UNABLE TO SLEEP THROUGHOUT SHIFT SO FAR ASKING FROM GRAM [employer]RAKERS AND [employer]A. REINFORCED OF HYPERGLYCEMIA AND EDUCATED ON DIABETES. PATIENT ON SIDE OF BED DRINKING FLUIDS. WITH BED ALARM IN PLACE WILL CONTINUE TO MONITOR
--- NOTE | 2022-01-09 01:40 | NUR ---
PATIENT REQUESTING PAIN MEDICATION AROUND 0130 PROVIDED DUE TO HEADACHE AND GENERALIZED PAIN. REPOSITIONED IN BED HOB 45 DEGREES FOR COMFORT. 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 PENDING SPUTUM NEEDED INFORMED PATIENT. WILL CONTINUE TO MONITOR FOR ANY CHANGES. REMAINS ON 02 @ 2L VIA DE.
--- NOTE | 2022-01-09 04:47 | NUR ---
PATIENT DID NOT SLEEP THROUGHOUT THE NIGHT RESTLESS, CURRENTLY USING BR AMBULATING WITH WALKER WILL ASSIST TO CHAIR. CONTINUING ON ABT THERAPY AND ISOLATION PRECAUTIONS.
[2022-01-09 05:14] VITALS: BP 155/70; PULSE 70; TEMP 97.8
[2022-01-09 06:49] LABS: HEMATOCRIT 35.9 % (42.0-52.0); HEMOGLOBIN 12.4 g/dl (13.5-18.0); MEAN CELL VOLUME 96 fl (80.0-100.0); MEAN CORPUSCULAR HEMOGLOBIN 33 pg (27-31); MEAN CORPUSCULAR HGB CONC 35 g/dl (33.0-37.0); MEAN PLATELET VOLUME 9.8 fl (7.4-10.4); PLATELET COUNT 150 K/mm3 (130-400); RED BLOOD COUNT 3.74 M/mm3 (4.20-5.60); REDCELL DISTRIBUTION WIDTH-CV 13.7 % (11.5-14.5)
[2022-01-09 07:19] LABS: ALBUMIN 2.5 gm/dL (3.4-4.8); CALCIUM 8.4 mg/dL (8.4-10.2); CREATININE, serum 0.85 mg/dL (0.72-1.25); MAGNESIUM 1.9 mg/dL (1.6-2.6); TOTAL PROTEIN 5.6 gm/dL (6.2-8.1)
[2022-01-09 07:22] LABS: BAND 2 % (0-10); LYMPHOCYTE 11 % (20.0-51.0); METAMYELOCYTE 1 % (0-0); NEUTROPHILS 76 % (42.0-75.2); PLATELET ESTIMATE NORMAL (NORMAL)
[2022-01-09 07:39] VITALS: BP 137/68; PULSE 69; TEMP 98.6
--- NOTE | 2022-01-09 08:00 | NUR ---
Assessment complete. A&Ox4. Denies pain/nausea. Short of breath with activity. O2 currently @2L/NC. VS stable. BUE/BLE edema-+2. Right wrist INT flushes well. SCDs bilat. Plan of care discussed for this shift to include meds/calling for quesitons/concerns. Verbalizes understanding. Call light in reach. Will monitor.
[2022-01-09 11:52] VITALS: BP 170/81; PULSE 70; TEMP 97.8
--- NOTE | 2022-01-09 12:10 | NUR ---
Patient called out stating he was having chest pain. Noted to have elevated blood pressures 170s/90s. Describes pain as pressure in mid chest. Spoke with [facility] and new orders received and initiated. Patient states that the pressure started after receiving news that he would be transferring to [place] and he feels as if it stress/anxiety related. Ativan ordered and given at this time. Will continue to monitor.
--- NOTE | 2022-01-09 13:20 | NUR ---
Critical troponin lab called to [facility] Curtis
--- NOTE | 2022-01-09 14:42 | NUR ---
The clinical team is ready to discharge the patient. MARGARETTE met with the patient's daughter, Jazmyne. Jazmyne is in agreement to the plan, but states that Dr. Augustine informed them the patient would be discharged on IV antibiotics. She would like to know this. MARGARETTE presented and read the IM form outloud to Jazmyne. Jazmyne verbalized understanding and signed the form. MARGARETTE provided her with a copy. Dr. Augustine, legislative correspondent, then arrived to the hospital. Dr. Augustine is recommending that the patient continue his IV antibotics: IV Zosyn 3 times a day and IV Vanco twice a day upon discharge. If SNF cannot accomodate this, Dr. Augustine is recommending [facility]. MARGARETTE notified Davis at [facility] of the patient's antibiotic needs. Davis reports that they are able to accomodate the antibiotics and would be ready to accept the patient today. They can pick the patient up at 1430 today. MARGARETTE contacted and updated the patient's daughter, Jazmyne, and . The hospitalist and PA then informed MARGARETTE that with the patient's antibiotic regimen, they would recommend [facility] now for the patient. MARGARETTE contacted and updated the patient's daughter and . They are agreeable to [facility] in [place]. MARGARETTE contacted and faxed a referral to Kurtis at [facility]. Awaiting screen.
--- NOTE | 2022-01-09 15:16 | NUR ---
Patient denies chest pressure at this time.
[2022-01-09 15:31] VITALS: BP 165/88; PULSE 72; TEMP 97.4
--- NOTE | 2022-01-09 15:37 | NUR ---
Kurtis, at [facility], reports that the patient meets criteria and they are able to accept him. He states that he may have a bed tomorrow. He plans to contact the patient's daughter, Jazmyne.
--- NOTE | 2022-01-09 16:12 | NUR ---
Kurtis, at [facility] [place], reports that they are able to accept the patient tomorrow and that he has been in contact with the patient's daughter, Jazmyne. MARGARETTE contacted Yg at [facility] and secured a transport time around 1500. MARGARETTE updated the PA and the patient's daughter, Jazmyne. The patient's was also on the call. The patient and his are in agreement to the plan.
[2022-01-09 20:43] VITALS: BP 168/54; PULSE 70; TEMP 97.8
[2022-01-10 00:34] VITALS: BP 151/77; PULSE 70; TEMP 98
--- NOTE | 2022-01-10 03:08 | NUR ---
ASSESSMENT COMPLETE FOR THIS SHIFT. PT RESTING IN BED WATCHING THE NEWS. PT DENIED GENERAL PAIN, CHEST PAIN, PALPITATIONS, SOB, N,V,D OR DIZZINESS. PT'S HAD AN UNEVENTFUL NIGHT SO FAR. PT EXPRESSED NO OTHER NEEDS AT THIS TIME. CALL LIGHT WITHIN REACH.
[2022-01-10 04:50] VITALS: BP 157/78; PULSE 82; TEMP 98
[2022-01-10 06:42] LABS: HEMATOCRIT 37.6 % (42.0-52.0); MEAN CELL VOLUME 96 fl (80.0-100.0); MEAN CORPUSCULAR HEMOGLOBIN 33 pg (27-31); MEAN CORPUSCULAR HGB CONC 35 g/dl (33.0-37.0); MEAN PLATELET VOLUME 10.3 fl (7.4-10.4); PLATELET COUNT 156 K/mm3 (130-400); REDCELL DISTRIBUTION WIDTH-CV 13.8 % (11.5-14.5)
[2022-01-10 07:04] LABS: CALCIUM 8.4 mg/dL (8.4-10.2); CREATININE, serum 0.8 mg/dL (0.72-1.25)
[2022-01-10 07:10] VITALS: BP 132/79; PULSE 77; TEMP 98
[2022-01-10 07:38] LABS: BAND 5 % (0-10); EOSINOPHIL 3 % (0-4); LYMPHOCYTE 1 % (20.0-51.0); NEUTROPHILS 88 % (42.0-75.2)
[2022-01-10 07:39] LABS: PLATELET ESTIMATE NORMAL (NORMAL)
[2022-01-10] MEDS ORDERED: IPRATROPIUM BROM3 M1 IH (08:24)
[2022-01-10] MEDS ORDERED: FLONASE NASAL S16 GM NS (08:25)
[2022-01-10] MEDS ORDERED: NORVASC2.5 MG PO (08:25)
[2022-01-10] MEDS ORDERED: DEEP SEA 45 ML45 ML NS (08:26)
[2022-01-10] MEDS ORDERED: SENNA-S 50 MG-81 TAB PO (08:27)
[2022-01-10] MEDS ORDERED: PREDNISONE20 MG PO (08:28)
[2022-01-10] MEDS ORDERED: ZOSYN 4 GM-0.51 PD1 IV (08:38)
[2022-01-10] MEDS ORDERED: VANCOCIN HCL1 GM IV (08:39)
--- NOTE | 2022-01-10 09:58 | NUR ---
PT SITTING IN BED. MORNING MEDICATIONS GIVEN. SHIFT ASSESSMENT COMPLETED. PT CURRENTLY ON 2L VIA NC. DENIES ANY PAIN OR NEEDS AT THIS TIME. AMBULATING AROUND ROOM WELL. PREPARING FOR DISCHARGE THIS AFTERNOON. WILL CONTINUE TO MONITOR.
--- NOTE | 2022-01-10 09:58 | NUR ---
The patient is to discharge today, 01/10, to [facility] in [place]. Transportation was arranged around 1500, via [facility]. MARGARETTE informed the patient's RN, daughter, and Kurtis at [facility] of the time. The patient's daughter, Jazmyne, also gave verbal consent to MARGARETTE for the EMS Transfer. No additional needs at this time.
[2022-01-10 10:59] VITALS: BP 150/90; PULSE 82; TEMP 98
--- NOTE | 2022-01-10 15:22 | NUR ---
PT DISCAHRGED FROM UNIT WITH EMS TRANSPORTATION. THIS RN ATTEMPTED TO CALL REPORT TO [facility] AT THIS TIME, LEFT A MESSAGE, WAITING ON A CALL BACK.
--- NOTE | 2022-01-10 16:05 | NUR ---
REPORT GIVEN TO SCOTT AT [facility]. WILL D/C PT FROM SYSTEM.
[2022-02-18] MEDS ORDERED: TYLENOL 325MG325 MG PO (16:42)
[2022-02-18] MEDS ORDERED: ROBITUSSIN100 MG/5 M PO (16:48)
[2022-04-16] MEDS ORDERED: ULTRAM 50MG TAB50 MG PO (15:52)
[2022-04-16] MEDS ORDERED: AQUAPHOR BABY HEA41% TP (15:54)
[2022-04-16] MEDS ORDERED: BUMEX 1MG TA1 MG/TA1 PO (15:56)
[2022-04-16] MEDS ORDERED: K-DUR20 MEQ PO (15:58)
[2022-04-16] MEDS ORDERED: JUVEN1 PDR PO (16:01)
[2022-04-16] MEDS ORDERED: MULTI VITAMINS1 TAB PO (16:03)
[2022-04-16] MEDS ORDERED: VITAMIN C500 MG PO (16:06)
[2022-04-16] MEDS ORDERED: CVS GLUCOSE15 GM PO (16:10)
[2022-04-16] MEDS ORDERED: FLONASE SENSIM9.9 ML NS (16:11)
[2022-04-16] MEDS ORDERED: SENOKOT S 50 MG1 TAB PO (16:16)
[2022-04-18] MEDS ORDERED: HYDROCORTISON28.4 GM TP (09:39)
[2022-04-18] MEDS ORDERED: IPRATROPIUM BROM3 M1 IH (09:42)
[2022-04-18] MEDS ORDERED: NORCO 325 MG-51 TAB PO (09:50)
== END 2022-01-10 16:05 | DRG 193 ==
LOC: COL.ER 21:51 → MEDICAL 01-05 00:32
PROVIDERS: Emergency Medicine; Physician Assistant; ADMIT Internal Medicine
PROC: 02HV33Z Insertion of Infusion Device into Superior Vena Cava, Percutaneous Approach (ICD-10-PCS; principal; 2022-01-10)
DX: J18.1 Lobar pneumonia, unspecified organism (principal); I21.A1 Myocardial infarction type 2; J96.01 Acute respiratory failure with hypoxia; I50.23 Acute on chronic systolic (congestive) heart failure; E87.2 Acidosis; N17.9 Acute kidney failure, unspecified; I25.10 Atherosclerotic heart disease of native coronary artery without angina pectoris; I48.91 Unspecified atrial fibrillation; I27.20 Pulmonary hypertension, unspecified; D64.9 Anemia, unspecified; E80.6 Other disorders of bilirubin metabolism; Z20.822 Contact with and (suspected) exposure to COVID-19; E11.65 Type 2 diabetes mellitus with hyperglycemia; I08.0 Rheumatic disorders of both mitral and aortic valves; B97.89 Other viral agents as the cause of diseases classified elsewhere; I11.0 Hypertensive heart disease with heart failure; B97.19 Other enterovirus as the cause of diseases classified elsewhere; K21.9 Gastro-esophageal reflux disease without esophagitis; T38.0X5A Adverse effect of glucocorticoids and synthetic analogues, initial encounter; Y92.238 Other place in hospital as the place of occurrence of the external cause; E11.649 Type 2 diabetes mellitus with hypoglycemia without coma; D72.829 Elevated white blood cell count, unspecified; Z87.01 Personal history of pneumonia (recurrent); Z95.5 Presence of coronary angioplasty implant and graft; Z79.84 Long term (current) use of oral hypoglycemic drugs; Z79.82 Long term (current) use of aspirin; Z79.890 Hormone replacement therapy; Z95.1 Presence of aortocoronary bypass graft; Z88.2 Allergy status to sulfonamides; Z95.0 Presence of cardiac pacemaker; Z88.8 Allergy status to other drugs, medicaments and biological substances; Z23 Encounter for immunization
CPT/HCPCS: 99223-AI; 99232-AI; 99233-AI; 99239; A9284; C1751; J0360; J1815; J1940; J1956; J2543; J2920; J2930; J3370; J7050; J7512

== ENCOUNTER 2022-02-12 10:56 | Inpatient (IN) | payer OTHER, MEDICARE ==
[~2022-02-12] VITALS: Ht 172.7 cm; Wt 75.3 kg
[~2022-02-12 10:56] MED LIST changes: +DEEP SEA 45 ML45 ML NS; +FLONASE NASAL S16 GM NS; +GLUCOPHAGE XR500 M1 PO; +GLUCOPHAGE500 MG/TAB PO; +IPRATROPIUM BROM3 M1 IH; +MELATIN 3 MG-11 TAB PO; +MIRALAX PA17 GM/Dose PO; +NORVASC2.5 MG PO; +PROTONIX 40MG T40 MG PO; +SENNA-S 50 MG-81 TAB PO; +TUMS500 MG PO; +VANCOCIN HCL1 GM IV; +ZOSYN 4 GM-0.51 PD1 IV
[2022-02-12 11:43] LABS: HEMOGLOBIN 11.7 g/dl (13.5-18.0); MEAN CELL VOLUME 98 fl (80.0-100.0); MEAN CORPUSCULAR HEMOGLOBIN 32 pg (27-31); MEAN CORPUSCULAR HGB CONC 33 g/dl (33.0-37.0); MEAN PLATELET VOLUME 10.5 fl (7.4-10.4); PLATELET COUNT 117 K/mm3 (130-400); RED BLOOD COUNT 3.62 M/mm3 (4.20-5.60); REDCELL DISTRIBUTION WIDTH-CV 15.6 % (11.5-14.5)
[2022-02-12 11:53] LABS: HEMATOCRIT 35.3 % (42.0-52.0)
[2022-02-12 11:59] LABS: ALBUMIN 2.6 gm/dL (3.4-4.8); BILIRUBIN,TOTAL 1.1 mg/dL (0.2-1.2); CALCIUM 8.2 mg/dL (8.4-10.2); CREATININE, serum 0.86 mg/dL (0.72-1.25); POTASSIUM 3.6 mmol/L (3.5-4.5); TOTAL PROTEIN 5.8 gm/dL (6.2-8.1)
[2022-02-12 12:10] LABS: BAND 15 % (0-10); BASOPHIL 1 % (0-2); LYMPHOCYTE 4 % (20.0-51.0); METAMYELOCYTE 4 % (0-0); NEUTROPHILS 70 % (42.0-75.2)
[2022-02-12 12:15] LABS: PLATELET ESTIMATE NORMAL (NORMAL)
[2022-02-12 12:16] LABS: MICROCYTOSIS 1+; OVALOCYTES 1+
[2022-02-12] MEDS ORDERED: ASPIRIN 81M81 MG/TA2 (13:22)
[2022-02-12] MEDS ORDERED: GLUCOPHAGE500 MG/TAB (13:28)
[2022-02-12] MEDS ORDERED: LOPRESSOR 225 MG/TAB (13:29)
[2022-02-12] MEDS ORDERED: ROBITUSSIN100 MG/5 M (13:31)
[2022-02-12] MEDS ORDERED: TYLENOL 325MG325 MG (13:33)
[2022-02-12] MEDS ORDERED: ASPERCREME1 EACH (13:36)
[2022-02-12] MEDS ORDERED: HUMALOG100 U/ML SQ (13:38)
[2022-02-12] MEDS ORDERED: ARTIFICIAL TEAR15 M7 OU (13:41)
[2022-02-12 14:20] LABS: COLLECTION METHOD CLEAN CATCH
[2022-02-12 14:26] LABS: MUCOUS Present (NOT PRESENT); PH 6 (5-8); SQUAMOUS EPITHELIAL None Seen /hpf (0-10); URINE APPEARANCE Clear (CLEAR/HAZY); URINE BACTERIA None Seen /hpf (NONE SEEN); URINE BLOOD Negative (NEGATIVE); URINE COLOR Yellow (YELLOW); URINE GLUCOSE Negative (NEGATIVE); URINE KETONE Negative (NEGATIVE); URINE NITRATE Negative (NEGATIVE); URINE PROTEIN(semi-quant) Negative (NEGATIVE); URINE RBC 0-2 /hpf (0-2); URINE UROBILINOGEN >=4.0 (NEGATIVE)
[2022-02-12 16:52] VITALS: BP 169/76; PULSE 70; TEMP 97.7
--- NOTE | 2022-02-12 19:11 | NUR ---
PATIENT ARRIVED TO UNIT WITH NO ADVERSE EVENT. CHANGED AND ORIENTED TO ROOM, NO COMPLAINTS OF PAIN. ASSESSMENT PERFORMED, DINNER ORDERD AND PATIENT RESTING COMFORTABLY.
[2022-02-12 19:35] VITALS: BP 172/76; PULSE 71; TEMP 97.7
[2022-02-12 23:16] VITALS: BP 158/78; PULSE 69; TEMP 97.4
[2022-02-13 03:29] VITALS: BP 153/80; PULSE 73; TEMP 97.6
--- NOTE | 2022-02-13 06:37 | NUR ---
pt on 2L O2 per NC, very sleepy and lethargic @HS, only able to take a few 2100 meds crushed in applesauce, awake and alert this am, meds given whole in applesauce. calls for urinal as needed. BGM last noc 197, no SSI required.
[2022-02-13 06:58] LABS: HEMOGLOBIN 11.9 g/dl (13.5-18.0); MEAN CELL VOLUME 95 fl (80.0-100.0); MEAN CORPUSCULAR HEMOGLOBIN 32 pg (27-31); MEAN CORPUSCULAR HGB CONC 34 g/dl (33.0-37.0); MEAN PLATELET VOLUME 10.6 fl (7.4-10.4); PLATELET COUNT 118 K/mm3 (130-400); RED BLOOD COUNT 3.71 M/mm3 (4.20-5.60); REDCELL DISTRIBUTION WIDTH-CV 15.4 % (11.5-14.5)
[2022-02-13 07:01] LABS: HEMATOCRIT 35.3 % (42.0-52.0)
[2022-02-13 07:13] LABS: C-REACTIVE PROTEIN 9.42 mg/dL (0.00-0.50); CALCIUM 8.1 mg/dL (8.4-10.2); CREATININE, serum 0.75 mg/dL (0.72-1.25); MAGNESIUM 1.2 mg/dL (1.6-2.6); POTASSIUM 3.5 mmol/L (3.5-4.5)
--- NOTE | 2022-02-13 07:22 | NUR ---
REPORT D DIMER OF [address] GARRETT, WILL REVIEW CHART.
[2022-02-13 07:37] VITALS: BP 122/78; PULSE 81; TEMP 97.7
[2022-02-13 08:02] LABS: BAND 8 % (0-10); BURR CELLS 1+; EOSINOPHIL 1 % (0-4); LYMPHOCYTE 4 % (20.0-51.0); NEUTROPHILS 86 % (42.0-75.2); OVALOCYTES 1+; PLATELET ESTIMATE DECREASED (NORMAL); SCHISTOCYTES 1+
--- NOTE | 2022-02-13 10:03 | NUR ---
ALERT AND OX3. WHILE EATING BREAKFAST FELT NAUSEATED. ZOFRAN GIVEN. TOOK 1 PILL AT A TIME, MED PASSED. CO FEELING DIZZY, ORTHO STAT BP TAKEN AND REPORTED. 114/92 LYING, 127/78 SITTING, 83/53 STANDING. DOCTOR AWARE OF CHANGES. DENIES COUGH. PT WORKING W PT. CALL LIGHT WI REACH.
[2022-02-13 11:12] VITALS: BP 114/59; PULSE 71; TEMP 97.6
--- NOTE | 2022-02-13 14:30 | NUR ---
Anesthesia Assistant attempted to contact patient's , Kate to discuss discharge planning as patient is in isolation for [facility]. MARGARETTE left message. MARGARETTE then contacted patient's daughter, Jazmyne (ph#[phone]) to discuss discharge planning. Jazmyne advised patient [facility] discharge to [facility] on 02/04/22 and has been there since. Patient sees Dr. Maricarmen Koenig at the [facility] for primary care. Patient normally uses a walker or wheelchair for ambulation. Jazmyne is unsure if patient has DPOA-HC but if he does, she thinks it may be his newphew Rizwan. Haleigh advised his , Kate (legal next of kin) is having some trouble right now and may not be easily accessible by phone. Jazmyne advised the plan is for patient to return to [facility] at time of discharge. MARGARETTE contacted Jessica at [facility] and faxed clinical updates. Jessica advised they can accept patient back at time of discharge. Discharge Plan: [facility]
[2022-02-13 16:27] VITALS: BP 108/67; PULSE 69; TEMP 97.4
--- NOTE | 2022-02-13 17:18 | NUR ---
PT HAD A UNEVENTFUL DAY. 2LITER, DESATS WHEN AMBULATING. COMMODE USED AT BEDSIDE. UPDATED GREGORIO TODAY WHEN SHE CALLED. NEEDS MET.
[2022-02-13 19:30] VITALS: BP 144/76; PULSE 69; TEMP 97.7
[2022-02-13 23:32] VITALS: BP 124/83; PULSE 70; TEMP 97.6
[2022-02-14 03:30] VITALS: BP 112/63; PULSE 70; TEMP 97.2
[2022-02-14 08:00] VITALS: BP 133/90; PULSE 78; TEMP 97.7
[2022-02-14 12:00] VITALS: BP 123/74; PULSE 72; TEMP 97.7
[2022-02-14 16:00] VITALS: BP 133/62; PULSE 75
[2022-02-14 19:50] VITALS: BP 140/83; PULSE 76; TEMP 97.3
[2022-02-14 22:51] VITALS: BP 114/12; BP 114/72; PULSE 71; TEMP 97.9
--- NOTE | 2022-02-14 22:58 | NUR ---
Pt alert, but very forgetful. Pt often asks the same questions multiple times in one period and at times the conversation does not make sense. Pt follows commands and is calm and cooperative. Pt is currently on room air, satting WNL. Pt has a productive cough, and often coughs after taking larger pills. Sputum is a moderate amount a clear, with a yellow tint. Pt forgets limitations, but has not attempted to get OOB without assistance. Pt is continent and sometimes incontinent of urine. Continuing with PO antibx per orders. Enforcing 1500 FR. Shift assessment performed. Medications administered per orders and education provided. VS stable. Pt afebrile. On room air. FSBS 256. No significant skin issues noted. Fall precautions in place. Bed alarm on, yellow gown on, yellow socks on. Pt does not report any questions at this time. Bed is low and locked, call vanegas within reach. No new concerns at this time.
[2022-02-15 04:00] VITALS: BP 123/73; PULSE 69; TEMP 97.2
--- NOTE | 2022-02-15 04:47 | NUR ---
No adverse events overnight. Pt alert, still forgetful. Denies chest pain/SOB. Productive cough still continuing. On room air, satting WNL. VS stable. Afebrile. Pt continues to be continent/incontinent. Adequate urine output overnight. monitoring engineer on. PO antibx administered per orders. Fall precautions in place. Bed alarm on. Bed low and locked, call vanegas within reach. Pt does not report any questions at this time, no new concerns at this time.
[2022-02-15 08:00] VITALS: BP 140/73; PULSE 75; TEMP 97.7
--- NOTE | 2022-02-15 08:00 | NUR ---
Patient sitting up in the recliner, Alert, but confused and forgetful. VSS. IV CDI. Denies pain and discomfort. Contact/droplet precautions in place. Call light within reach. Chair alarm on. Monitor watching the patient
[2022-02-15] MEDS ORDERED: DECADRON6 MG PO (09:01)
[2022-02-15] MEDS ORDERED: DOXYCYCLINE 10100 MG PO (09:05)
[2022-02-15 12:00] VITALS: BP 121/76; PULSE 76; TEMP 97.9
--- NOTE | 2022-02-15 12:43 | NUR ---
In Service Education Teacher was notified that patient is ready for discharge back to [facility] today. SW attempted to contact patient by room phone and was unable to reach him. RN advised patient is aware he is going back to [facility]. MARGARETTE contacted Jessica at [facility] and set transport time for 1300. MARGARETTE faxed discharge orders and notified Jessica that patient will need oxygen at time of pickup. MARGARETTE contacted patient's daughter, Jazmyne to notify her of discharge. MARGARETTE reviewed IM form with patient's daughter over the phone and she gave verbal consent as signature. MARGARETTE placed form in chart. MARGARETTE received a phone call from NGUYỄN Reid from the [place] who requested update. MARGARETTE advised patient to discharge to [facility] today. Discharge Plan: [facility]
--- NOTE | 2022-02-15 13:00 | NUR ---
Patient taken by [facility] transporter. IV removed, tip intact, gauze and coban applied. Report called to the nurse at [facility]. Personal belongings with the patient
[2022-02-18 16:01] VITALS: O2SAT 80; O2SAT 85
[2022-02-18 16:03] VITALS: O2SAT 84
[2022-02-18 16:05] VITALS: O2SAT 91
[2022-02-18 16:06] VITALS: O2SAT 92
[2022-02-18 16:07] VITALS: O2SAT 92
[2022-02-18] MEDS ORDERED: TYLENOL 325MG325 MG PO (16:42)
[2022-02-18] MEDS ORDERED: ROBITUSSIN100 MG/5 M PO (16:48)
[2022-02-19] VITALS (211 sets, daily range): O2SAT 89–100
== END 2022-02-15 13:00 | DRG 177 ==
LOC: COL.ER 10:56 → MEDICAL 14:18
PROVIDERS: Family Medicine; ADMIT Internal Medicine
DX: U07.1 COVID-19 (principal); J12.82 Pneumonia due to coronavirus disease 2019; I50.23 Acute on chronic systolic (congestive) heart failure; E78.5 Hyperlipidemia, unspecified; I25.10 Atherosclerotic heart disease of native coronary artery without angina pectoris; I27.20 Pulmonary hypertension, unspecified; E11.65 Type 2 diabetes mellitus with hyperglycemia; E11.649 Type 2 diabetes mellitus with hypoglycemia without coma; I48.91 Unspecified atrial fibrillation; D64.9 Anemia, unspecified; I11.0 Hypertensive heart disease with heart failure; Z95.1 Presence of aortocoronary bypass graft; Z88.2 Allergy status to sulfonamides; Z79.82 Long term (current) use of aspirin; Z79.4 Long term (current) use of insulin; Z88.8 Allergy status to other drugs, medicaments and biological substances; Z95.0 Presence of cardiac pacemaker; Z23 Encounter for immunization
CPT/HCPCS: J0696; J1650; J1815; J8540

== ENCOUNTER 2022-04-15 12:21 | Emergency (ER) | payer OTHER, MEDICARE ==
[~2022-04-15] VITALS: Ht 172.7 cm; Wt 77.3 kg
[~2022-04-15 12:21] MED LIST changes: +ARTIFICIAL TEAR15 M7 OU; +ASPERCREME1 EACH; +ASPIRIN 81M81 MG/TA2; +DECADRON6 MG PO; +GLUCOPHAGE500 MG/TAB; +HUMALOG100 U/ML SQ; +LOPRESSOR 225 MG/TAB; +ROBITUSSIN100 MG/5 M; +ROBITUSSIN100 MG/5 M PO; +TYLENOL 325MG325 MG
[2022-04-15 12:24] VITALS: TEMP 99.3
[2022-04-15 13:50] VITALS: BP 143/89; PULSE 70
[2022-04-16] MEDS ORDERED: ULTRAM 50MG TAB50 MG PO (15:52)
[2022-04-16] MEDS ORDERED: AQUAPHOR BABY HEA41% TP (15:54)
[2022-04-16] MEDS ORDERED: BUMEX 1MG TA1 MG/TA1 PO (15:56)
[2022-04-16] MEDS ORDERED: K-DUR20 MEQ PO (15:58)
[2022-04-16] MEDS ORDERED: JUVEN1 PDR PO (16:01)
[2022-04-16] MEDS ORDERED: MULTI VITAMINS1 TAB PO (16:03)
[2022-04-16] MEDS ORDERED: VITAMIN C500 MG PO (16:06)
[2022-04-16] MEDS ORDERED: CVS GLUCOSE15 GM PO (16:10)
[2022-04-16] MEDS ORDERED: FLONASE SENSIM9.9 ML NS (16:11)
[2022-04-16] MEDS ORDERED: SENOKOT S 50 MG1 TAB PO (16:16)
[2022-04-18] MEDS ORDERED: HYDROCORTISON28.4 GM TP (09:39)
[2022-04-18] MEDS ORDERED: IPRATROPIUM BROM3 M1 IH (09:42)
[2022-04-18] MEDS ORDERED: NORCO 325 MG-51 TAB PO (09:50)
== END 2022-04-15 13:50 | disposition home or self-care (01) ==
LOC: COL.ER 12:21
DX: K40.90 Unilateral inguinal hernia, without obstruction or gangrene, not specified as recurrent (principal); Z86.16 Personal history of COVID-19

== ENCOUNTER 2022-05-18 08:37 | Emergency (ER) | payer MEDICARE ==
[~2022-05-18] VITALS: Ht 200.7 cm; Wt 88.2 kg
[~2022-05-18 08:37] MED LIST changes: +AQUAPHOR BABY HEA41% TP; +BUMEX 1MG TA1 MG/TA1 PO; +CVS GLUCOSE15 GM PO; +FLONASE SENSIM9.9 ML NS; +HYDROCORTISON28.4 GM TP; +JUVEN1 PDR PO; +K-DUR20 MEQ PO; +MULTI VITAMINS1 TAB PO
[2022-05-18 08:39] VITALS: TEMP 96.2
[2022-05-18 09:48] LABS: BASO # 0.1 K/mm3 (0.0-0.2); BASO % 0.6 % (0.0-2.0); EOS # 0.3 K/mm3 (0.0-0.7); EOS % 3.8 % (0.0-4.0); GRAN % 69.8 % (42.2-75.2); HEMATOCRIT 37.1 % (42.0-52.0); HEMOGLOBIN 12.7 g/dl (13.5-18.0); LYMPH # 1.2 K/mm3 (1.2-3.4); LYMPH % 14.5 % (20.0-51.0); MEAN CELL VOLUME 93 fl (80.0-100.0); MEAN CORPUSCULAR HEMOGLOBIN 32 pg (27-31); MEAN CORPUSCULAR HGB CONC 34 g/dl (33.0-37.0); MEAN PLATELET VOLUME 9.5 fl (7.4-10.4); MONO # 0.9 K/mm3 (0.1-0.6); MONO % 10.1 % (1.7-9.3); PLATELET COUNT 174 K/mm3 (130-400); REDCELL DISTRIBUTION WIDTH-CV 13.4 % (11.5-14.5)
[2022-05-18 10:02] LABS: CALCIUM 9.6 mg/dL (8.4-10.2); CREATININE, serum 0.79 mg/dL (0.72-1.25); POTASSIUM 3.5 mmol/L (3.5-4.5)
[2022-05-18 13:44] VITALS: BP 155/84; PULSE 70
== END 2022-05-18 14:10 | disposition home or self-care (01) ==
LOC: COL.ER 08:37
PROVIDERS: Emergency Medicine
DX: S09.90XA Unspecified injury of head, initial encounter (principal); S00.03XA Contusion of scalp, initial encounter; S03.41XA Sprain of jaw, right side, initial encounter; I48.92 Unspecified atrial flutter; Z86.16 Personal history of COVID-19; W01.198A Fall on same level from slipping, tripping and stumbling with subsequent striking against other object, initial encounter
CPT/HCPCS: J2765; J3010; J7120